=== PATIENT | female | born 1960 | race Caucasian/White ===

== ENCOUNTER 2019-08-02 02:31 | Emergency (ER) | payer BC, SELFPAY ==
--- NOTE | ~2019-08-02 | CT_ITS ---
EXAMINATION: CTA chest PE protocol DATE: 08/02/2019 04:07 INDICATION: Dyspnea TECHNIQUE: Computed tomography (CT) pulmonary angiogram of the chest was performed with 100 mL Omnipa que-350 intravenous contrast. Additional 3D reconstructions utilizing coronal maximum intensity proje ction (MIP) were performed. Automated exposure control and iterative reconstruction technique were em ployed. The dose-length product was 863.84 mGy-cm. COMPARISON: None FINDINGS: Excellent contrast opacification of the pulmonary arteries. There is mild streak artifact from dense contrast in the superior vena cava and right atrium. Mild scattered respiratory motion artifact which does not significantly limit evaluation. No pulmonary embolism. Mosaic attenuation throughout both l ungs likely related to poor inspiratory effort with scattered subsegmental air trapping related to sm all airway disease. No pneumonia, pulmonary edema, pleural effusion or pneumothorax. Borderline heart size. Thoracic aorta is normal in caliber with no dissection. No pathologically enlarged thoracic ly mphadenopathy. IMPRESSION: 1. No pulmonary embolism or other acute cardiopulmonary disease. 2. Borderline heart size. Reviewed, dictated and finalized at location A.
--- NOTE | ~2019-08-02 | XR_ITS ---
EXAMINATION: XR chest 2V DATE: 08/02/2019 03:02 INDICATION: Cough and shortness of breath TECHNIQUE: PA and lateral views of the chest were obtained. COMPARISON: Chest radiograph dated 03/18/2016 FINDINGS: The lungs remain clear with no focal airspace opacities, pulmonary edema, pleural effusion or pneumot horax. The cardiomediastinal silhouette is normal. There are bridging osteophytes at multiple levels in the spine, consistent with diffuse idiopathic skeletal hyperostosis (DISH). IMPRESSION: 1. No acute cardiopulmonary disease. Reviewed, dictated and finalized at location A.
[2019-08-02 02:37] VITALS: BP 160/80; PULSE 80; RESP 19; TEMP 36.7; O2SAT 99
--- NOTE | 2019-08-02 02:39 | ED.SOB ---
HPI - SOB/Dyspnea General Chief Complaint: Shortness of Breath/Dyspnea Stated Complaint: SOB Time Seen by Provider: 08/02/19 02:35 Source: patient Mode of arrival: ambulatory Limitations: no limitations History of Present Illness HPI Narrative: A 59 y/o female presents to the ED with c/o SOB. Pt states that 2 days ago she was disinfecting her counters when she believed she inhaled some of the chemicals. The SOB started immediately after she cleaned her counters and has been constant since. Pt denies rhinorrhea, sore throat, cough, and CP. She has no other complaints at this time. MD elicited complaint: shortness of breath Onset (ago): day(s) (2) Context: smoke/fume exposure Timing: constant Associated symptoms: denies other symptoms Related Data Allergies Allergy/AdvReac Type Severity Reaction Status Date / Time No Known Allergies Allergy Verified 08/02/19 02:34 Review of Systems Review of Systems: All systems reviewed & are unremarkable except as noted in HPI and below ENT: Denies nasal discharge and Denies sore throat Cardiovascular: Cardiovascular: Denies chest pain Respiratory: Respiratory: Denies cough and Reports dyspnea PMF Past Medical History Medical History (Updated 08/02/19 @ 04:57 by Deondre Viera DO) Arthritis HTN (hypertension) Hyperlipidemia Leg fracture Bilateral Post-menopausal Surgical History Surgical History (Updated 08/02/19 @ 02:41 by Tamica Foy) History of arthroscopic knee surgery Left History of section History of hip surgery Right with bilateral leg History of hysterectomy Social History Social History (Updated 08/02/19 @ 02:42 by Tamica Foy) Smoking status: Never smoker Gender identity (if verbalized by the patient): Female Exam Narrative: Exam Narrative: APPEARANCE: No acute distress, nontoxic, resting in bed EYES: EOMI HEENT: Normocephalic, atraumatic, nares patent, oral mucosa moist RESPIRATORY: No respiratory distress Clear to auscultation bilaterally with no rhonchi wheezing or rales. CARDIOVASCULAR: Regular rate and rhythm without murmurs rubs or gallops. ABDOMINAL: Soft, nontender, nondistended, no rebound or guarding MUSCULOSKELETAl: Moves all extremities. No clubbing, cyanosis or edema. NEURO: Awake and alert. Following commands, speech normal, no focal deficits SKIN:: Warm, dry. No rashes lesions or abrasions PSYCHIATRIC: Normal affect/mood, Course Course Emergency Course: Patient states she is feeling better this time Discussed with patient results of workup and diagnosis. Discussed need for follow-up with primary care, proper use of medication, and reasons to return to the emergency department. Patient understands and agrees to current treatment plan Vital Signs Vital signs: Vital Signs Temperature 98.0 F 08/02/19 02:37 Pulse Rate 80 08/02/19 02:37 Respiratory Rate 19 08/02/19 02:37 Blood Pressure 160/80 H 08/02/19 02:37 Pulse Oximetry 99 08/02/19 02:37 Temperature 98.0 F 08/02/19 02:37 Pulse Rate 77 08/02/19 03:13 Respiratory Rate 19 08/02/19 02:37 Blood Pressure 160/80 H 08/02/19 02:37 Pulse Oximetry 98 08/02/19 02:56 MDM - SOB/Dyspnea MDM Narrative Medical decision making narrative: Patient has dyspnea of unclear etiology. No wheezing on clinical exam. Low risk well score, PE is felt unlikely. No abnormalities noted on chest x-ray. Patient?s EKG is without high-risk changes. Oxygen saturations are normal. Patient is felt to be a reasonable candidate for additional evaluation as an outpatient. Lab Data Result diagrams: 08/02/19 03:13 08/02/19 03:13 Labs: Lab Results 08/02/19 08/02/19 08/02/19 Range/Units 03:13 03:13 03:13 WBC 6.2 (4.5-10.0) K/mm3 RBC 4.23 (4.2-5.4) M/mm3 Hgb 12.5 (12.0-15.0) g/dL Hct 39.4 (37.0-47.0) % MCV 93.1 (80-100) fl MCH 29.6 (26-34) pg MCHC 31.7 L (32-36) g/dl RDW 14.1 (11.5-14.5)
--- NOTE | 2019-08-02 02:45 | ECG_ITS ---
Measurements Intervals [place] Rate: 82 P: 38 [place]: 123 QRS: 3 QRSD: 109 T: 15 QT: 362 QTc: 423 Interpretive Statements SINUS RHYTHM DELAYED PRECORDIAL R/S TRANSITION BORDERLINE ST-T WAVE ABNORMALITY- ANTEROLAT/INF LEADS BASELINE ARTIFACT- I, III, AVL, V6 BORDERLINE ECG Electronically Signed On 08-02-2019 7:07:48 CDT by Jayant Glover D.O.
[2019-08-02 02:56] VITALS: O2SAT 98
[2019-08-02 03:13] VITALS: PULSE 77
[2019-08-02 03:19] LABS: Basophils Percent Auto 0.3 % (0.2-1.2); Eosinophils Absolute Auto 0.2 K/mm3 (0-0.3); Eosinophils Percent Auto 2.6 % (0-4.4); Hematocrit 39.4 % (37.0-47.0); Hemoglobin 12.5 g/dL (12.0-15.0); Immature Granulocyte Absolute 0.01 K/mm3 (0.00-0.031); Immature Granulocyte Percent A 0.2 % (0-0.5); Lymphocytes Absolute Auto 2.04 K/mm3 (0.9-3.2); Mean Corpuscular HGB Conc 31.7 g/dl (32-36); Mean Corpuscular Hemoglobin 29.6 pg (26-34); Mean Corpuscular Volume 93.1 fl (80-100); Mean Platelet Volume 9.8 fl (7.4-10.4); Monocytes Absolute Auto 0.4 K/mm3 (0.1-0.6); Monocytes Percent Auto 6.8 % (2.6-8.5); Neutrophils Absolute Auto 3.5 K/mm3 (1.3-6.7); Neutrophils Percent Auto 57.1 % (45.5-73.1); Platelet Count Result 305 k/mm3 (150-375); Red Blood Count 4.23 M/mm3 (4.2-5.4); Red Cell Distribution Width 14.1 % (11.5-14.5); White Blood Count 6.2 K/mm3 (4.5-10.0)
[2019-08-02 03:28] LABS: INR 0.9; Sodium 138 mmol/L (137-145)
[2019-08-02 03:29] LABS: Partial Thromboplastin Time 31.9 SECONDS (22.3-36.8)
[2019-08-02 03:36] LABS: Blood Urea Nitrogen 16 mg/dL (7-17); Calcium 9.3 mg/dL (8.4-10.2); Carbon Dioxide 29 mmol/L (22-30); Chloride 103 mmol/L (98-107); Estimated Glomerular Filt Rate > 60; Glucose 116 mg/dL (65-105); Potassium 3.8 mmol/L (3.4-5.0)
[2019-08-02 03:43] LABS: NT Pro B Type Natriuretic Pept 65 PG/ML (5-100); Troponin I < 0.012 ng/mL (0.000-0.034)
[2019-08-02 03:50] VITALS: BP 165/83; PULSE 73; RESP 17; O2SAT 98
[2019-08-02 05:13] VITALS: BP 159/91; PULSE 72; RESP 16; TEMP 36.9; O2SAT 100
== END 2019-08-02 05:15 | disposition home or self-care (01) ==
PROVIDERS: Emergency Provider Emergency Medicine
DX: R06.00 Dyspnea, unspecified (principal); M19.90 Unspecified osteoarthritis, unspecified site; I10 Essential (primary) hypertension; E78.5 Hyperlipidemia, unspecified; R94.31 Abnormal electrocardiogram [ECG] [EKG]
CPT/HCPCS: 36415; 71046; 71275; 80048; 83880; 84484; 85025; 85610; 85730; 93005; 99284; Q9967

== ENCOUNTER 2019-08-20 04:30 | Emergency (ER) | payer MEDICAID, SELFPAY ==
--- NOTE | ~2019-08-20 | CT_ITS ---
EXAMINATION: CT abdomen pelvis w con DATE: 08/20/2019 05:51 INDICATION: Generalized abdominal pain. TECHNIQUE: Computed tomography (CT) of the abdomen and pelvis was performed with 100 mL Omnipaque 350 intravenous contrast. Automated exposure control and iterative reconstruction technique were employe d. The dose-length product was 1593.47 mGy-cm. COMPARISON: CT abdomen and pelvis 02/16/2010 FINDINGS: The visualized portions of the lung bases demonstrate mild atelectasis. No pleural effusion . Cardiomegaly is noted. No pericardial effusion. There is a chronic 11 mm hyperenhancing mass in rig ht hepatic lobe, likely a hemangioma or focal nodular hyperplasia. Again seen is a 2.2 cm mass in lef t hepatic lobe, likely benign. There is a gallstone in the gallbladder, which is normal in size. The spleen, pancreas, and right adrenal gland are normal. There is a 9 mm mass in left adrenal gland with out change, consistent with an adenoma. There is cortical thinning of the kidneys. There are no dilat ed loops of bowel. The appendix is normal. There are no pathologically enlarged lymph nodes. There is no free intraperitoneal fluid. There is screw fixation of right acetabulum. There is severe right hi p osteoarthritis and moderate left hip osteoarthritis. There are bridging endplate osteophytes at mul tiple levels in the thoracic spine, consistent with diffuse idiopathic skeletal hyperostosis (DISH). There is mild lumbar spondylosis. IMPRESSION: 1. Cholelithiasis. No evidence of acute cholecystitis. Reviewed, dictated and finalized at location A.
[2019-08-20 04:34] VITALS: BP 150/95; PULSE 87; RESP 20; TEMP 36.3; O2SAT 100
--- NOTE | 2019-08-20 04:41 | ED.GENADULT ---
HPI - General Adult General Chief complaint: Abdominal Pain Stated complaint: ABD PAIN Time Seen by Provider: 08/20/19 04:38 Source: RN notes reviewed History of Present Illness HPI narrative: Patient presents emergency department from home for abdominal pain. Patient states symptoms began this evening. The pain is located diffusely across her mid abdomen. Patient describes the pain is burning. States she took no previous pain medication for the symptoms. States that the makes the pain better or worse. Denies any fevers or chills nausea vomiting diarrhea dysuria or any other symptoms Related Data Home Medications Medication Instructions Recorded Confirmed [id number] [id number] cap PO 08/02/19 [Daily Multivitamin] Allergies Allergy/AdvReac Type Severity Reaction Status Date / Time No Known Allergies Allergy Verified 08/20/19 04:41 Review of Systems Review of Systems: Narrative: Gen.: Denies fevers or chills ENT: Denies congestion Respiratory: Denies shortness of breath or cough CV: Denies chest pain or palpitations GI: See HPI denies burning, urgency, frequency or hematuria Musculoskeletal: Denies back pain or muscle pain Neuro: Denies numbness, tingling, weakness or focal weakness Skin: Denies rash Except as documented, all other systems reviewed and negative PMF Past Medical History Medical History Arthritis HTN (hypertension) Hyperlipidemia Leg fracture Bilateral Post-menopausal Surgical History Surgical History (Updated 08/02/19 @ 02:41 by Tamica Foy) History of arthroscopic knee surgery Left History of section History of hip surgery Right with bilateral leg History of hysterectomy Social History Social History Smoking status: Never smoker Gender identity (if verbalized by the patient): Female Exam Narrative: Exam Narrative: APPEARANCE: No acute distress, nontoxic, resting in bed HEENT: Normocephalic, atraumatic, OMM RESPIRATORY: No respiratory distress, clear to auscultation bilaterally with no rhonchi wheezing or rales CARDIOVASCULAR: RRR s murmur ABDOMINAL: Obese, soft, nondistended, tender to palpation right lower quadrant, right upper quadrant left upper quadrant no tenderness left lower quadrant, no rebound or guarding MUSCULOSKELETAl: Moves all extremities. No clubbing, cyanosis or edema. NEURO: Awake and alert. Following commands, speech normal, no focal deficits SKIN:: Warm, dry. Normal Color PSYCHIATRIC: Normal affect/mood Course Course Emergency Course: Patient notes mild change in pain with Tylenol and improvement with GI cocktail Patient states that they are feeling much better at this time. States abdominal pain has improved. Repeat abdominal exam shows the patient's abdomen to be soft with no surgical abdomen present discussed with patient results of workup and diagnosis. Discussed need for follow-up with primary care physician, reasons to return to the emergency department in proper use of medication. Patient understands and agrees to current treatment plan Vital Signs Vital signs: Vital Signs Temperature 97.3 F L 08/20/19 04:34 Pulse Rate 87 08/20/19 04:34 Respiratory Rate 20 08/20/19 04:34 Blood Pressure 150/95 H 08/20/19 04:34 Pulse Oximetry 100 08/20/19 04:34 Temperature 97.3 F L 08/20/19 04:34 Pulse Rate 87 08/20/19 04:34 Respiratory Rate 20 08/20/19 04:34 Blood Pressure 150/95 H 08/20/19 04:34 Pulse Oximetry 100 08/20/19 04:34 Medical Decision Making MDM Narrative Medical decision making narrative: Patient's abdomen is soft without significant pain or signs of surgical abdomen on serial exams. Lab and x-ray evaluations are reviewed and patient is felt to be a reasonable candidate for outpatient management. Patient was instructed as to limitations of x-ray and laboratory evaluation an
[2019-08-20] MEDS: SODIUM CHLORIDE 0.9% IV 1,000 ML 999 ML IV CONT (04:44)
[2019-08-20 05:02] LABS: Basophils Absolute Auto 0.1 K/mm3 (0.0-0.1); Basophils Percent Auto 0.6 % (0.2-1.2); Eosinophils Absolute Auto 0.2 K/mm3 (0-0.3); Eosinophils Percent Auto 2.2 % (0-4.4); Hematocrit 41.2 % (37.0-47.0); Immature Granulocyte Absolute 0.02 K/mm3 (0.00-0.031); Immature Granulocyte Percent A 0.2 % (0-0.5); Lymphocytes Absolute Auto 2.36 K/mm3 (0.9-3.2); Lymphocytes Percent Auto 29.4 % (18.3-44.2); Mean Corpuscular HGB Conc 31.6 g/dl (32-36); Mean Corpuscular Hemoglobin 29.3 pg (26-34); Mean Platelet Volume 10.1 fl (7.4-10.4); Monocytes Absolute Auto 0.5 K/mm3 (0.1-0.6); Monocytes Percent Auto 6.1 % (2.6-8.5); Neutrophils Absolute Auto 4.9 K/mm3 (1.3-6.7); Neutrophils Percent Auto 61.5 % (45.5-73.1); Platelet Count Result 368 k/mm3 (150-375); Red Blood Count 4.43 M/mm3 (4.2-5.4); Red Cell Distribution Width 14.1 % (11.5-14.5)
[2019-08-20 05:04] LABS: Add Urine Microscopic? NO; Appearance Urine Clear (Clear); Bilirubin Urine Negative (Negative); Blood Urine Negative (Negative); Color Urine Straw (Yellow); Glucose Urine UA Negative (Negative); Ketones Urine Negative (Negative); Leukocyte Esterase Ur Negative LEU/UL (Negative); Nitrate Urine Negative (Negative); Protein Urine Negative (Negative); Specific Grav Ur 1.011 (1.001-1.035); Urobilinogen Urine Negative mg/dL (<2.0)
[2019-08-20 05:26] LABS: Alanine Aminotransferase 13 U/L (4-35); Albumin Level 4.4 g/dL (3.5-5.1); Alkaline Phosphatase 93 U/L (38-126); Aspartate Amino Transferase 22 U/L (14-36); Bilirubin,Total 0.8 mg/dL (0.2-1.3); Blood Urea Nitrogen 15 mg/dL (7-17); Calcium 9.5 mg/dL (8.4-10.2); Carbon Dioxide 29 mmol/L (22-30); Chloride 104 mmol/L (98-107); Estimated Glomerular Filt Rate > 60; Glucose 113 mg/dL (65-105); Lipase 114 U/L (23-300); Potassium 3.8 mmol/L (3.4-5.0); Sodium 140 mmol/L (137-145)
== END 2019-08-20 06:29 | disposition home or self-care (01) ==
PROVIDERS: Emergency Provider Emergency Medicine
DX: K80.20 Calculus of gallbladder without cholecystitis without obstruction (principal); M19.90 Unspecified osteoarthritis, unspecified site; I10 Essential (primary) hypertension; E78.5 Hyperlipidemia, unspecified
CPT/HCPCS: 36415; 74177; 80053; 81003; 83690; 85025; 96361; 96374; 99284; A9270; J0131; J7030; Q9967

== ENCOUNTER 2019-09-01 10:59 | Observation (INO) | payer MEDICAID, SELFPAY ==
[2019-09-01] VITALS (10 sets, daily range): BP systolic 134–156; BP diastolic 63–80; PULSE 64–71; RESP 14–18; TEMP 36.1–36.8; O2SAT 97–100
--- NOTE | ~2019-09-01 | XR_ITS ---
EXAMINATION: XR chest 1V portable INDICATION: Chest pain TECHNIQUE: Portable AP chest at 1127 hours COMPARISON: 08/02/2019 FINDINGS: The lungs are free of acute opacities. There is no pleural effusion or pneumothorax. The ca rdiomediastinal silhouette is normal. IMPRESSION: 1. No acute cardiopulmonary abnormality. Reviewed, dictated and finalized at location A.
[2019-09-01 11:35] LABS: Basophils Percent Auto 0.6 % (0.2-1.2); Eosinophils Absolute Auto 0.1 K/mm3 (0-0.3); Eosinophils Percent Auto 1.9 % (0-4.4); Hematocrit 41.6 % (37.0-47.0); Hemoglobin 13.1 g/dL (12.0-15.0); Immature Granulocyte Absolute 0.01 K/mm3 (0.00-0.031); Immature Granulocyte Percent A 0.1 % (0-0.5); Lymphocytes Absolute Auto 2.27 K/mm3 (0.9-3.2); Lymphocytes Percent Auto 33.1 % (18.3-44.2); Mean Corpuscular HGB Conc 31.5 g/dl (32-36); Mean Corpuscular Volume 92.2 fl (80-100); Mean Platelet Volume 10.4 fl (7.4-10.4); Monocytes Absolute Auto 0.4 K/mm3 (0.1-0.6); Monocytes Percent Auto 6.3 % (2.6-8.5); Platelet Count Result 350 k/mm3 (150-375); Red Blood Count 4.51 M/mm3 (4.2-5.4); Red Cell Distribution Width 13.8 % (11.5-14.5); White Blood Count 6.9 K/mm3 (4.5-10.0)
--- NOTE | 2019-09-01 11:39 | ED.ABDPAIN ---
HPI - Abdominal Pain General Chief Complaint: Chest Pain Stated Complaint: CHEST PAIN Time Seen by Provider: 09/01/19 11:01 Source: RN notes reviewed History of Present Illness HPI narrative: Patient presents emergency department from home for chest pain. Patient states 3 months prior to arrival she had left-sided chest pain that radiated to left arm. Pain was described as sharp and stabbing was associated with epigastric abdominal pain and pain in the bilateral upper abdomen. Patient denies any fevers or chills denies any shortness of breath nausea vomiting or diarrhea. Patient states she was recently diagnosed with gallstones and did see a surgeon and it is been request that she receive one further test for her gallbladder. Patient dates the pain is improved but still mildly has left-sided chest pain at this time Related Data Home Medications Medication Instructions Recorded Confirmed [id number] I-soqux-bbh-coQ10 cap PO 08/02/19 08/27/19 [Daily Multivitamin] escitalopram oxalate 10 mg tablet 10 mg PO DAILY 08/23/19 08/27/19 Allergies Allergy/AdvReac Type Severity Reaction Status Date / Time No Known Allergies Allergy Verified 09/01/19 11:09 Review of Systems Review of Systems: Narrative: Gen.: Denies fevers or chills Eyes: Denies eye pain or visual change ENT: Denies congestion Respiratory: Denies shortness of breath or cough CV: Reports chest pain GI: Reports abdominal pain denies nausea, emesis or diarrhea Musculoskeletal: Denies back pain or muscle pain Neuro: Denies numbness, tingling, weakness or focal weakness Skin: Denies rash Except as documented, all other systems reviewed and negative [facility] Past Medical History Medical History Arthritis HTN (hypertension) Hyperlipidemia Leg fracture Bilateral Post-menopausal Social History Social History Smoking status: Never smoker Alcohol intake: never Gender identity (if verbalized by the patient): Female Exam Narrative: Exam Narrative: APPEARANCE: No acute distress, nontoxic, resting in bed HEENT: Normocephalic, atraumatic, OMM RESPIRATORY: No respiratory distress, clear to auscultation bilaterally with no rhonchi wheezing or rales CARDIOVASCULAR: RRR s murmur Chest: Tender palpation over left anterior chest wall ABDOMINAL: Soft, nondistended, tender palpation epigastric and right upper quadrant left upper quadrant, no tenderness right lower quadrant left lower quadrant MUSCULOSKELETAl: Moves all extremities. No clubbing, cyanosis or edema. NEURO: Awake and alert. Following commands, speech normal, no focal deficits SKIN:: Warm, dry. Normal Color PSYCHIATRIC: Normal affect/mood Course Course Emergency Course: Reviewed old records. Patient has been seen here twice in the past month for similar Discussed with JEANINE Gamez presentation work-up. Agrees with admission at this time Discussed with patient and family results of workup and diagnosis. Discussed need for admission. Patient and family understand and agree to current treatment plan Vital Signs Vital signs: Vital Signs Temperature 98.2 F 09/01/19 11:03 Pulse Rate 71 09/01/19 11:03 Respiratory Rate 18 09/01/19 11:03 Blood Pressure 156/76 H 09/01/19 11:03 Pulse Oximetry 100 09/01/19 11:03 Temperature 98.2 F 09/01/19 11:03 Pulse Rate 64 09/01/19 13:56 Respiratory Rate 16 09/01/19 13:56 Blood Pressure 135/63 09/01/19 13:56 Pulse Oximetry 99 09/01/19 13:56 MDM - Abdominal Pain Lab Data Result diagrams: 09/01/19 11:26 09/01/19 11:26 Labs: Lab Results 09/01/19 09/01/19 09/01/19 Range/Units 11:26 11:26 11:26 WBC 6.9 (4.5-10.0) K/mm3 RBC 4.51 (4.2-5.4) M/mm3 Hgb 13.1 (12.0-15.0) g/dL Hct 41.6 (37.0-47.0) % MCV 92.2 (80-100) fl MCH 29.0 (26-34) pg MCHC 31.5 L (32-36)
[2019-09-01 11:45] LABS: INR 0.9; Prothrombin Time 12.2 Seconds (11.1-14.7)
[2019-09-01 11:46] LABS: Partial Thromboplastin Time 32.1 SECONDS (22.3-36.8)
[2019-09-01 11:51] LABS: Alanine Aminotransferase 12 U/L (4-35); Albumin Level 4.4 g/dL (3.5-5.1); Alkaline Phosphatase 88 U/L (38-126); Aspartate Amino Transferase 22 U/L (14-36); Bilirubin,Total 0.8 mg/dL (0.2-1.3); Blood Urea Nitrogen 17 mg/dL (7-17); Calcium 9.6 mg/dL (8.4-10.2); Carbon Dioxide 30 mmol/L (22-30); Chloride 103 mmol/L (98-107); Estimated CRCL calculation 106 ml/min; Estimated Glomerular Filt Rate > 60; Glucose 104 mg/dL (65-105); Lipase 97 U/L (23-300); Potassium 3.5 mmol/L (3.4-5.0); Sodium 140 mmol/L (137-145)
[2019-09-01 12:03] LABS: Troponin I < 0.012 ng/mL (0.000-0.034)
--- NOTE | 2019-09-01 12:58 | ECG_ITS ---
Measurements Intervals [place] Rate: 73 P: 48 [place]: 131 QRS: -1 QRSD: 121 T: 3 QT: 390 QTc: 431 Interpretive Statements SINUS RHYTHM INTRAVENTRICULAR CONDUCTION DELAY DELAYED PRECORDIAL R/S TRANSITION BORDERLINE ST-T WAVE ABNORMALITY- ANTEROLAT/INF LEADS BASELINE ARTIFACT- I, II, AVL, AVF BORDERLINE ECG Electronically Signed On 09-01-2019 15:13:41 CDT by Jayant Glover D.O.
[2019-09-01] MEDS: ASPIRIN 81 MG CHEWABLE TABLET 324 MG PO (13:45)
--- NOTE | 2019-09-01 14:05 | ADMGEN ---
This patient, Mame Valero, was admitted to IMU Room 202-. Patient/family oriented to hospital policies and general routines including ID bracelet, bed and alarms, visiting hours, pain management, procedures, bathroom and other care routines, personal items, smoking policy, room service/diet, and visiting hours. Valuables list has been completed. Information on how to activate the Rapid Response Team has been discussed. Patient/Family are encouraged to report perceived risks to care and to ask questions if they do not understand what they are told or what they should do.
[2019-09-01 15:38] LABS: Troponin I < 0.012 ng/mL (0.000-0.034)
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
[2019-09-01 19:38] LABS: Troponin I < 0.012 ng/mL (0.000-0.034)
--- NOTE | 2019-09-26 11:40 | P.PNCA_ITS ---
Progress Note: A&P Additional Plan 59-year-old patient with abdominal and chest pain. As detailed in the chart patient discharged by the primary service before the consult was placed. Note is being placed in the chart per medical record request Mac Abrams MD [facility] Subjective Date/time seen: 09/26/19 11:40 Interval history: Consult requested to see this patient with chest and abdominal pain. Patient discharged by the primary service before opportunity to see the patient Objective Data Meds/Results Radiology Results: ITS Impressions Chest X-Ray 09/01/19 11:35 IMPRESSION: 1. No acute cardiopulmonary abnormality.
== END 2019-09-01 20:34 | disposition home or self-care (01) ==
LOC: ANHED 13:47 → ANHIMU 14:11
PROVIDERS: Admitting Provider Internal Medicine; Emergency Provider Emergency Medicine; PCP Nurse Practitioner Family; Visit Provider Hospitalist
DX: R07.9 Chest pain, unspecified (principal); R10.11 Right upper quadrant pain; K80.20 Calculus of gallbladder without cholecystitis without obstruction; K21.9 Gastro-esophageal reflux disease without esophagitis; E78.5 Hyperlipidemia, unspecified; Z78.0 Asymptomatic menopausal state
CPT/HCPCS: 36415; 71045; 80053; 83690; 84484; 85025; 85610; 85730; 93005; 99285; A9270; G0378; G0379

== ENCOUNTER 2020-01-28 16:58 | Emergency (ER) | payer OTHER, SELFPAY ==
[2020-01-28 17:14] VITALS: BP 134/83; PULSE 79; RESP 16; TEMP 36.7; O2SAT 98
--- NOTE | 2020-01-28 17:49 | PC.NURSE ---
aware of scudding inspector in with possible emergent pt. aware of facility status. no rash noted at this time.
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
== END 2020-01-28 18:35 | disposition home or self-care (01) ==
PROVIDERS: Emergency Provider Nurse Practitioner Family; PCP Nurse Practitioner Family
DX: L25.9 Unspecified contact dermatitis, unspecified cause (principal); I10 Essential (primary) hypertension; K21.9 Gastro-esophageal reflux disease without esophagitis
CPT/HCPCS: 99211; G0463

== ENCOUNTER 2020-08-29 09:47 | Outpatient (CLI) | payer OTHER, SELFPAY ==
--- NOTE | ~2020-08-29 | XR_ITS ---
XR hip BI wo pelvis DATE: 08/29/2020 10:16 INDICATION: Bilateral hip pain. History of prior benign pelvic surgery. TECHNIQUE: AP and lateral views of each hip COMPARISON: 08/20/2019 CT abdomen pelvis 05/30/2018 right hip FINDINGS: Diffuse osteopenia. The pubic symphysis and sacroiliac joints are intact. There is bilateral hip osteoarthritic arthritis including joint space narrowing and degenerative spur ring, particularly severe on the right. Multiple right hip pins bodies. No fracture or dislocation, avascular necrosis or bone destruction. There are 2 screws through the posterior superior aspect of the right acetabulum. IMPRESSION: Bilateral hip osteoarthritis, more severe on the right Right hip loose bodies Reviewed, dictated and finalized at location A.
--- NOTE | ~2020-08-29 | XR_ITS ---
XR lumbar spine 2-3V DATE: 08/29/2020 10:16 INDICATION: Low back pain TECHNIQUE: AP, lateral, coned lateral lumbosacral views COMPARISON: lumbar spine 02/15/2017 MRI of lumbar spine FINDINGS: Diffuse osteopenia. No fracture or bone destruction of the lumbar spine. The lumbar pedicles are intact. Moderately severe degenerative disease at L1-2 and L2-3 and mild degenerative disc disease at L3-4, L 4-5 and L5-S1. There is degenerative change at the apophyseal joints with associated grade 1 anterolisthesis at L4-5 , stable since 08/30/2016. The sacroiliac joints are normal. IMPRESSION: Diffuse osteopenia Multilevel degenerative disc disease, most pronounced at L1-2 and L2-3 Degenerative changes of apophyseal joints with associated grade 1 anterolisthesis at L4-5 Reviewed, dictated and finalized at location A. IMPRESSION: Diffuse osteopenia Multilevel degenerative disc disease, most pronounced at L1-2 and L2-3 Degenerative changes of apophyseal joints with associated grade 1 anterolisthes is at L4-5
== END 2020-08-29 09:48 | disposition home or self-care (01) ==
LOC: ANHIMG 09:53
PROVIDERS: PCP Nurse Practitioner Family; Visit Provider Nurse Practitioner Family
DX: M16.0 Bilateral primary osteoarthritis of hip (principal); M24.051 Loose body in right hip; M85.88 Other specified disorders of bone density and structure, other site; M51.36 Other intervertebral disc degeneration, lumbar region
CPT/HCPCS: 72100; 73521

== ENCOUNTER 2020-12-07 17:29 | Emergency (ER) | payer OTHER, SELFPAY ==
--- NOTE | ~2020-12-07 | XR_ITS ---
EXAMINATION:XR_CERV2-3V_CR DATE: 12/07/2020 19:44 INDICATION: Neck pain TECHNIQUE: AP, lateral, and odontoid views of the cervical spine are provided. COMPARISON: 08/30/2016 FINDINGS: Alignment is normal. The odontoid is intact. No fracture is identified. There is unchanged mild loss of intervertebral disc space height at C5-6. Small degenerative osteophytes project from th e anterior endplates of multiple vertebral bodies. There is moderate multilevel facet and uncovertebr al joint osteoarthritis. The vertebral body heights are maintained. Prevertebral soft tissues are nor mal. IMPRESSION: 1. Mild to moderate cervical spondylosis without acute findings or significant interval change. Reviewed, dictated and finalized at location A.
[2020-12-07 18:24] VITALS: BP 151/76; PULSE 80; RESP 16; TEMP 36.4; O2SAT 100
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
[2020-12-07] MEDS: ACETAMINOPHEN 325 MG TABLET 650 MG PO (20:38)
[2020-12-07 20:53] VITALS: BP 158/71; PULSE 72; RESP 20; TEMP 36.3; O2SAT 99
[2020-12-07 20:56] VITALS: BP 158/71; PULSE 66; RESP 20; TEMP 36.3; O2SAT 99
== END 2020-12-07 20:59 | disposition home or self-care (01) ==
PROVIDERS: Emergency Provider Emergency Medicine; PCP Nurse Practitioner Family
DX: S16.1XXA Strain of muscle, fascia and tendon at neck level, initial encounter (principal); M62.838 Other muscle spasm; K21.9 Gastro-esophageal reflux disease without esophagitis; M19.90 Unspecified osteoarthritis, unspecified site; E78.5 Hyperlipidemia, unspecified; M47.812 Spondylosis without myelopathy or radiculopathy, cervical region; X58.XXXA Exposure to other specified factors, initial encounter
CPT/HCPCS: 72040; 99283; A9270

== ENCOUNTER 2021-01-30 09:43 | Outpatient (CLI) | payer OTHER, SELFPAY ==
--- NOTE | ~2021-01-30 | DEXA_ITS ---
Bone Density Report Name: Mame Valero Age: 61 Sex: Female Ethnicity: White Date of : 1960 Indication: postmenopausal; height loss; hysterectomy; Referring Provider: Drew, Dona Frazier Study: Bone densitometry was performed. Exam Date: January 30, 2021 Accession number: [id number] Bone Density: Region BMD T-score Z-score Classification AP Spine (L2, L3, L4) 1.096 0.2 1.8 Normal Femoral Neck (Left) 0.712 -1.2 0.2 Osteopenia Total Hip (Left) 0.828 -0.9 0.2 Normal World Health Organization criteria for BMD impression classify patients as: Normal (T-score at or above -1.0), Osteopenia (T-score between -1.0 and -2.5), or Osteoporosis (T-score at or below -2.5). 10-year Fracture Risk(1): Major Osteoporotic Fracture 6.7% Hip Fracture 0.5% Reported Risk Factors: [place] (), Neck BMD=0.712, BMI=45.7 (1) FRAX(R) Version 3.08. Fracture probability calculated for an untreated patient. Fracture probability may be lower if the patient has received treatment. Clinical Information Provided by Patient: Has used the following medications: Vitamin D, Calcium Has the following medical conditions: Hysterectomy Patient maximum height was 64 Menopause Age: 37 Does not regularly consume dairy products Onset of menses at age 9 Number of children 3 Impression: The patient has low bone mass, based on the Left Femoral Neck T-score. The patient has an estimated ten-year risk of hip fracture of 0.5% and an estimated ten-year risk of major fracture of 6.7%, based on the WHO FRAX algorithm. Discussion: BONE DENSITY IS LOW AT ONE OR MORE SKELETAL SITES. This patient's lowest T-score is low at one or more skeletal sites. It meets the World Health Organization's (WHO) criteria for ?low bone mass? (T-score between -1.0 and -2.5). The patient's 10-year risk of fracture as calculated by FRAX is less than the threshold where pharmacological therapy is recommended by the National Osteoporosis Foundation (NOF). However, all treatment decisions require clinical judgment and consideration of individual patient factors, including patient preferences, comorbidities, previous drug use, risk factors not captured in the FRAX model (e.g., frailty, falls, vitamin D deficiency, increased bone turnover, interval significant decline in bone density) and possible under or overestimation of fracture risk by FRAX. The patient should follow a healthful lifestyle (good nutrition with adequate calcium and vitamin D, and appropriate weight-bearing exercise). Follow-Up: Consider repeating this study in 2 to 3 years to reassess this patient's status, or sooner if there is some new clinical indication. Reported by: LUIS on 01/30/2021 10:12:00 AM. Reviewed, dictated and finalized at location AAsad MANZANARES
== END 2021-01-30 09:44 | disposition home or self-care (01) ==
LOC: ANHIMG 09:47
PROVIDERS: PCP Nurse Practitioner Family; Visit Provider Nurse Practitioner Family
DX: Z13.820 Encounter for screening for osteoporosis (principal); M85.852 Other specified disorders of bone density and structure, left thigh
CPT/HCPCS: 77080

== ENCOUNTER 2021-05-25 20:08 | Emergency (ER) | payer OTHER, SELFPAY ==
--- NOTE | ~2021-05-25 | XR_ITS ---
EXAMINATION: XR chest 2V DATE: 05/25/2021 20:36 INDICATION: Left and center chest tightness. TECHNIQUE: Frontal and lateral views of the chest were obtained. COMPARISON: Chest single view 09/01/2019 FINDINGS: The chest demonstrates clear lungs without pneumonia, pleural effusion, or pneumothorax. Th e heart size is normal. IMPRESSION: 1. No acute cardiopulmonary disease. Reviewed, dictated and finalized at location A. THCARE INTERPRETER
--- NOTE | 2021-05-25 20:08 | ECG_ITS ---
Measurements Intervals [place] Rate: 65 P: 7 MD: 114 QRS: -8 QRSD: 118 T: 29 QT: 397 QTc: 413 Interpretive Statements SINUS RHYTHM NORMAL ECG Electronically Signed On 05-26-2021 6:19:18 BOOMBOAT OPERATOR by Jayant Glover D.O.
--- NOTE | 2021-05-25 20:32 | PC.NURSE ---
Pt to XY at this time.
[2021-05-25 20:47] VITALS: BP 145/78; PULSE 64; RESP 18; TEMP 36.2; O2SAT 99
[2021-05-25 21:09] LABS: Basophils Percent Auto 0.3 % (0.2-1.2); Eosinophils Absolute Auto 0.2 K/mm3 (0-0.3); Eosinophils Percent Auto 2.2 % (0-4.4); Hematocrit 42.1 % (37.0-47.0); Hemoglobin 13.2 g/dL (12.0-15.0); Immature Granulocyte Absolute 0.02 K/mm3 (0.00-0.031); Immature Granulocyte Percent A 0.3 % (0-0.5); Lymphocytes Absolute Auto 2.31 K/mm3 (0.9-3.2); Lymphocytes Percent Auto 32.3 % (18.3-44.2); Mean Corpuscular HGB Conc 31.4 g/dl (32-36); Mean Corpuscular Hemoglobin 29.3 pg (26-34); Mean Corpuscular Volume 93.3 fl (80-100); Mean Platelet Volume 9.2 fl (7.4-10.4); Monocytes Absolute Auto 0.4 K/mm3 (0.1-0.6); Monocytes Percent Auto 5.7 % (2.6-8.5); Neutrophils Absolute Auto 4.2 K/mm3 (1.3-6.7); Neutrophils Percent Auto 59.2 % (45.5-73.1); Platelet Count Result 307 k/mm3 (150-375); Red Blood Count 4.51 M/mm3 (4.2-5.4); White Blood Count 7.2 K/mm3 (4.5-10.0)
[2021-05-25 21:19] LABS: INR 0.9
[2021-05-25 21:20] LABS: Alanine Aminotransferase 17 U/L (4-35); Albumin Level 4.4 g/dL (3.5-5.1); Alkaline Phosphatase 73 U/L (38-126); Anion Gap 7 mmol/L (8-16); Aspartate Amino Transferase 28 U/L (14-36); Bilirubin,Total 0.6 mg/dL (0.2-1.3); Blood Urea Nitrogen 16 mg/dL (7-17); Calcium 9.7 mg/dL (8.4-10.2); Carbon Dioxide 30 mmol/L (22-30); Chloride 104 mmol/L (98-107); Estimated CRCL calculation 90 ml/min; Estimated Glomerular Filt Rate > 60; Glucose 105 mg/dL (65-110); Lipase 150 U/L (23-300); Sodium 141 mmol/L (137-145)
[2021-05-25 21:30] LABS: Troponin I < 0.012 ng/mL (0.000-0.034)
[2021-05-25 22:13] VITALS: BP 142/92; PULSE 77; RESP 18; O2SAT 99
[2021-05-26 00:05] VITALS: BP 147/57; PULSE 67; RESP 16; O2SAT 100
[2021-05-26 00:44] LABS: Troponin I < 0.012 ng/mL (0.000-0.034)
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
--- NOTE | 2021-05-26 00:54 | PC.NURSE ---
rn double checked with erp dr carrillo. no baby aspirin to be given at this time.
[2021-05-26 01:24] VITALS: BP 111/54; PULSE 64; RESP 16; O2SAT 99
== END 2021-05-26 01:26 | disposition home or self-care (01) ==
PROVIDERS: Family Medicine; Emergency Provider Emergency Medicine; PCP Nurse Practitioner Family
DX: R07.89 Other chest pain (principal); K21.9 Gastro-esophageal reflux disease without esophagitis; E78.5 Hyperlipidemia, unspecified; M19.90 Unspecified osteoarthritis, unspecified site
CPT/HCPCS: 36415; 71046; 80053; 83690; 84484; 85025; 85610; 85730; 93005; 99284

== ENCOUNTER 2022-01-12 08:17 | Outpatient (CLI) | payer OTHER, SELFPAY ==
--- NOTE | ~2022-01-12 | XR_ITS ---
EXAMINATION: XR chest 2V DATE: 01/12/2022 08:44 INDICATION: Cough TECHNIQUE: PA and lateral views of the chest are obtained. COMPARISON: 05/25/2021 FINDINGS: The lungs are free of acute opacities. No pleural effusion or pneumothorax. The cardiomedia stinal silhouette is normal. There is moderate thoracic spondylosis. IMPRESSION: 1. No acute cardiopulmonary abnormality. Reviewed, dictated and finalized at location B.
== END 2022-01-12 08:18 | disposition home or self-care (01) ==
PROVIDERS: PCP Nurse Practitioner Family; Visit Provider Nurse Practitioner Family
DX: R05.9 Cough, unspecified (principal)
CPT/HCPCS: 71046

== ENCOUNTER 2022-03-02 07:53 | Emergency (ER) | payer OTHER, SELFPAY ==
[2022-03-02] VITALS (8 sets, daily range): BP systolic 133–147; BP diastolic 77–84; PULSE 71–80; RESP 12–20; TEMP 36.5; O2SAT 97–100
--- NOTE | ~2022-03-02 | XR_ITS ---
EXAMINATION: XR chest 2V 03/02/2022 08:25 INDICATION: Chest pain and shortness of breath PROCEDURE: 2 view chest COMPARISON: Comparison to multiple prior studies sequentially, with oldest reviewed study dated 08/01. FINDINGS: The lungs are clear. The cardiomediastinal silhouette is within normal limits. There are no pleural effusions. There is no pneumothorax suspected. IMPRESSION: 1: NO ACUTE CARDIOPULMONARY DISEASE. Reviewed, dictated and finalized at location B.
--- NOTE | 2022-03-02 08:00 | ECG_ITS ---
Measurements Intervals [place] Rate: 76 P: 29 RI: 141 QRS: -7 QRSD: 114 T: 5 QT: 378 QTc: 426 Interpretive Statements SINUS RHYTHM POOR R-WAVE PROGRESSION COMPARED TO ECG 05/25/2021 20:30:16 NO SIGNIFICANT CHANGES Electronically Signed On 03-02-2022 16:14:04 CDT by Rob Hernandez M.D.
[2022-03-02 08:22] LABS: Basophils Percent Auto 0.5 % (0.2-1.2); Eosinophils Absolute Auto 0.1 K/mm3 (0-0.3); Eosinophils Percent Auto 1.5 % (0-4.4); Hematocrit 40.6 % (37.0-47.0); Hemoglobin 13.2 g/dL (12.0-15.0); Immature Granulocyte Absolute 0.01 K/mm3 (0.00-0.031); Immature Granulocyte Percent A 0.2 % (0-0.5); Lymphocytes Absolute Auto 1.67 K/mm3 (0.9-3.2); Lymphocytes Percent Auto 25.2 % (18.3-44.2); Mean Corpuscular HGB Conc 32.5 g/dl (32-36); Mean Corpuscular Hemoglobin 30.1 pg (26-34); Mean Corpuscular Volume 92.5 fl (80-100); Mean Platelet Volume 9.9 fl (7.4-10.4); Monocytes Absolute Auto 0.4 K/mm3 (0.1-0.6); Monocytes Percent Auto 5.6 % (2.6-8.5); Neutrophils Absolute Auto 4.5 K/mm3 (1.3-6.7); Platelet Count Result 304 k/mm3 (150-375); Red Blood Count 4.39 M/mm3 (4.2-5.4); Red Cell Distribution Width 14.2 % (11.5-14.5); White Blood Count 6.6 K/mm3 (4.5-10.0)
[2022-03-02 08:31] LABS: Alanine Aminotransferase 15 U/L (6-35); Albumin Level 4.1 g/dL (3.5-5.1); Alkaline Phosphatase 76 U/L (38-126); Anion Gap 12 mmol/L (8-16); Aspartate Amino Transferase 20 U/L (14-36); Bilirubin,Total 0.8 mg/dL (0.2-1.3); Blood Urea Nitrogen 16 mg/dL (7-17); Carbon Dioxide 27 mmol/L (22-30); Chloride 102 mmol/L (98-107); Estimated CRCL calculation 80 ml/min; Estimated Glomerular Filt Rate > 60; Glucose 119 mg/dL (65-110); Lipase 68 U/L (23-300); Potassium 3.6 mmol/L (3.4-5.0); Sodium 141 mmol/L (137-145)
[2022-03-02 08:33] LABS: Prothrombin Time 13.1 Seconds (11.1-14.7)
[2022-03-02 08:43] LABS: Troponin I < 0.012 ng/mL (0.000-0.034)
[2022-03-02] MEDS: ASPIRIN 81 MG CHEWABLE TABLET 324 MG PO (08:45)
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
[2022-03-02 11:30] LABS: Troponin I < 0.012 ng/mL (0.000-0.034)
== END 2022-03-02 12:01 | disposition home or self-care (01) ==
PROVIDERS: Emergency Provider Emergency Medicine; PCP Nurse Practitioner Family
DX: R07.89 Other chest pain (principal); M19.90 Unspecified osteoarthritis, unspecified site; K21.9 Gastro-esophageal reflux disease without esophagitis; E78.5 Hyperlipidemia, unspecified; Z90.710 Acquired absence of both cervix and uterus; R94.31 Abnormal electrocardiogram [ECG] [EKG]
CPT/HCPCS: 36415; 71046; 80053; 83690; 84484; 85025; 85610; 85730; 93005; 99284; A9270

== ENCOUNTER 2022-11-24 05:43 | Emergency (ER) | payer OTHER, SELFPAY ==
[2022-11-24] VITALS (19 sets, daily range): BP systolic 134–166; BP diastolic 56–112; PULSE 60–81; RESP 12–22; TEMP 36.4–36.6; O2SAT 97–100
--- NOTE | 2022-11-24 06:13 | ECG_ITS ---
Measurements Intervals [place] Rate: 71 P: 9 [place]: 123 QRS: -6 QRSD: 113 T: 12 QT: 394 QTc: 428 Interpretive Statements SINUS RHYTHM LOW VOLTAGE- PRECORDIAL LEADS MINIMAL Q WAVES- HIGH LATERAL LEADS BORDERLINE T WAVE ABNORMALITY- ANT/INF LEADS BORDERLINE ECG COMPARED TO ECG 03/02/2022 07:58:07 NO SIGNIFICANT CHANGES Electronically Signed On 11-24-2022 6:57:58 CDT by Jayant Glover D.O.
--- NOTE | 2022-11-24 06:44 | PC.NURSE ---
Pt states my chest feels strange but i think it is just anxiety . Provider made aware, EKG done.
[2022-11-24 06:48] LABS: Basophils Percent Auto 0.6 % (0.2-1.2); Eosinophils Absolute Auto 0.1 K/mm3 (0-0.3); Eosinophils Percent Auto 2.5 % (0-4.4); Hematocrit 40.2 % (37.0-47.0); Hemoglobin 12.7 g/dL (12.0-15.0); Immature Granulocyte Absolute 0.01 K/mm3 (0.00-0.031); Immature Granulocyte Percent A 0.2 % (0-0.5); Lymphocytes Absolute Auto 1.83 K/mm3 (0.9-3.2); Lymphocytes Percent Auto 35.2 % (18.3-44.2); Mean Corpuscular HGB Conc 31.6 g/dl (32-36); Mean Corpuscular Hemoglobin 29.2 pg (26-34); Mean Corpuscular Volume 92.4 fl (80-100); Monocytes Absolute Auto 0.3 K/mm3 (0.1-0.6); Monocytes Percent Auto 6.3 % (2.6-8.5); Neutrophils Absolute Auto 2.9 K/mm3 (1.3-6.7); Neutrophils Percent Auto 55.2 % (45.5-73.1); Platelet Count Result 289 k/mm3 (150-375); Red Blood Count 4.35 M/mm3 (4.2-5.4); Red Cell Distribution Width 14.2 % (11.5-14.5); White Blood Count 5.2 K/mm3 (4.5-10.0)
[2022-11-24 06:53] LABS: Alanine Aminotransferase 20 U/L (6-35); Albumin Level 3.8 g/dL (3.5-5.1); Alkaline Phosphatase 81 U/L (38-126); Anion Gap 6 mmol/L (8-16); Aspartate Amino Transferase 24 U/L (14-36); Bilirubin,Total 0.6 mg/dL (0.2-1.3); Blood Urea Nitrogen 14 mg/dL (7-17); Calcium 8.8 mg/dL (8.4-10.2); Carbon Dioxide 26 mmol/L (22-30); Chloride 107 mmol/L (98-107); Estimated CRCL calculation 102 ml/min; Estimated Glomerular Filt Rate > 60; Glucose 110 mg/dL (65-110); Lipase 108 U/L (23-300); Potassium 3.6 mmol/L (3.4-5.0); Sodium 139 mmol/L (137-145)
[2022-11-24 07:06] LABS: Troponin I < 0.012 ng/mL (0.000-0.034)
[2022-11-24 07:54] LABS: Appearance Urine Clear (Clear); Bilirubin Urine Negative (Negative); Blood Urine Negative (Negative); Color Urine Yellow (Yellow); Glucose Urine UA Negative (Negative); Ketones Urine Negative (Negative); Leukocyte Esterase Ur Negative LEU/UL (Negative); Nitrate Urine Negative (Negative); Protein Urine Negative (Negative); Specific Grav Ur 1.018 (1.001-1.035); Urobilinogen Urine 0.2 mg/dL (<2.0)
[2022-11-24 08:01] LABS: Add Urine Microscopic? NO
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
== END 2022-11-24 09:30 | disposition home or self-care (01) ==
PROVIDERS: Emergency Medicine; Emergency Provider Emergency Medicine; PCP Nurse Practitioner Family
DX: L75.0 Bromhidrosis (principal); N39.0 Urinary tract infection, site not specified; M19.90 Unspecified osteoarthritis, unspecified site; K21.9 Gastro-esophageal reflux disease without esophagitis; E78.5 Hyperlipidemia, unspecified; Z90.710 Acquired absence of both cervix and uterus; R94.31 Abnormal electrocardiogram [ECG] [EKG]
CPT/HCPCS: 36415; 80053; 81003; 83690; 84484; 85025; 93005; 99284

== ENCOUNTER 2023-01-04 07:12 | Outpatient (CLI) | payer OTHER, SELFPAY ==
--- NOTE | ~2023-01-04 | CT_ITS ---
. EXAMINATION: CT sinus wo con DATE: 01/04/2023 07:48 INDICATION: Sinus pressure. Upper jaw pain. Chronic sinusitis. TECHNIQUE: Computed tomography (CT) of the paranasal sinuses was performed without contrast. Iterativ e reconstruction technique was employed. Exam dose: 267.28 mGy-cm total exam DLP. COMPARISON: None FINDINGS: There is leftward deviation of the nasal septum. There is intralamellar cell of the left middle nasal turbinate. There is more prominent intralamellar cell and sheryl bullosa of the right middle nasal turbinate. The nasal turbinates are moderately swollen bilaterally. The ostiomeatal units are patent bilaterally. There are fixation devices along the lower anterior wall of each maxillary sinus. The frontal sinuses are diminutive, especially on the right. Otherwise the paranasal sinuses are norm ally developed and aerated. No mucoperiosteal thickening or soft tissue opacity or fluid level is not ed. The mastoid air cells are normally developed and aerated. Middle and inner ear apparatus are unremark able. IMPRESSION: Leftward deviation of nasal septum Mild intralamellar cell of left middle nasal terminate More prominent intralamellar cell and sheryl bullosa of right middle nasal turbinate Patent paranasal sinuses, ostiomeatal units and mastoid air cells Reviewed, dictated and finalized at [facility]. Reviewed, dictated and finalized at location L. IMPRESSION: Leftward deviation of nasal septum Mild intralamellar cell of left middle nasal terminate More prominent intralamellar cell and sheryl bullosa of right middle nasal turb inate Patent paranasal sinuses, ostiomeatal units and mastoid air cells
== END 2023-01-04 07:13 | disposition home or self-care (01) ==
PROVIDERS: PCP Nurse Practitioner Family; Visit Provider Otolaryngology
DX: J32.9 Chronic sinusitis, unspecified (principal); J34.2 Deviated nasal septum
CPT/HCPCS: 70486

== ENCOUNTER 2023-09-16 09:23 | Outpatient (CLI) | payer MEDICARE, OTHER, SELFPAY ==
--- NOTE | ~2023-09-16 | DEXA_ITS ---
Bone Density Report Name: RENETTA VAUGHN Age: 63 Sex: Female Ethnicity: White Date of : 1960 Indication: postmenopausal; screening for osteoporosis; height loss; hysterectomy; Referring Provider: DALTON REZA Study: Bone densitometry was performed. Exam Date: September 16, 2023 Accession number: [id number] Bone Density: Region BMD T-score Z-score Classification AP Spine(L2, L3, L4) 1.013 -0.6 1.3 Normal Femoral Neck (Left) 0.570 -2.5 -1.0 Osteoporosis Total Hip (Left) 0.772 -1.4 -0.1 Osteopenia World Health Organization criteria for BMD impression classify patients as: Normal (T-score at or above -1.0), Osteopenia (T-score between -1.0 and -2.5), or Osteoporosis (T-score at or below -2.5). 10-year Fracture Risk: FRAX not reported because: Some T-score for Spine Total or Hip Total or Femoral Neck at or below -2.5 Previous Exams: Region Exam Age BMD T-score BMD Change BMD Change Date g/cm2 vs Baseline vs Previous AP Spine (L2-L4) 09/16/2023 63 1.013 -0.6 -0.084 (-7.6%) -0.084 (-7.6%) 01/30/2021 61 1.096 0.2 Total Hip(Left) 09/16/2023 63 0.772 -1.4 -0.056 (-6.8%) -0.056 (-6.8%) 01/30/2021 61 0.828 -0.9 *Denotes significance at 95% confidence level, LSC for AP Spine = 0.022 g/cm2, LSC for Total Hip = 0.027 g/cm2 # Denotes dissimilar scan types or analysis methods Clinical Information Provided by Patient: Has used the following medications: Vitamin D, Calcium Has the following medical conditions: Hysterectomy Patient maximum height was 64 Menopause Age: 37 No regular weight bearing exercise Drinks caffeinated beverages Onset of menses at age 9 Number of children 3 Impression: The patient has osteoporosis, based on the Left Femoral Neck T-score. No significant bone loss was observed. Discussion: INCREASED RISK OF FRACTURE. BONE DENSITY IS UNDESIRABLY LOW AT ONE OR MORE SKELETAL SITES, CONSISTENT WITH POSTMENOPAUSAL OSTEOPOROSIS. This patient's lowest T-score meets the World Health Organization's (WHO) criteria for osteoporosis at one or more sites (T-score -2.5 or below). In untreated patients, the risk of osteoporotic fracture increases approximately two-fold for each 1.0 SD decrease in T-score. Low bone density is not the only risk factor for fracture; also consider factors such as patient's age, frailty or poor health, risk of falling, risk of injury, previous osteoporotic fracture, family history of osteoporosis, cigarette smoking, low body weight, etc. Not everyone with low bone mineral density has osteoporosi
== END 2023-09-16 09:24 | disposition home or self-care (01) ==
LOC: ANHIMG 09:24
PROVIDERS: PCP Family Medicine; Visit Provider Nurse Practitioner Family
DX: Z78.0 Asymptomatic menopausal state (principal); M85.80 Other specified disorders of bone density and structure, unspecified site; Z90.710 Acquired absence of both cervix and uterus; M81.0 Age-related osteoporosis without current pathological fracture; M85.852 Other specified disorders of bone density and structure, left thigh
CPT/HCPCS: 77080

== ENCOUNTER 2023-10-28 16:12 | Outpatient (CLI) | payer MEDICARE, OTHER, SELFPAY ==
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
== END 2023-10-28 16:13 | disposition home or self-care (01) ==
LOC: ANHIMG 16:13
PROVIDERS: PCP Family Medicine; Visit Provider Nurse Practitioner Family
DX: M16.11 Unilateral primary osteoarthritis, right hip (principal)
CPT/HCPCS: 73502

== ENCOUNTER 2023-11-22 12:18 | Emergency (ER) | payer OTHER, MEDICARE, SELFPAY ==
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
[2023-11-22 12:18] VITALS: BP 147/116; PULSE 87; RESP 22; TEMP 36.6; O2SAT 99
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
--- NOTE | 2023-11-22 13:53 | PC.NURSE ---
patient refused morphine IV, I don't like the way it makes me feel . provider aware
[2023-11-22 14:47] VITALS: BP 175/87; PULSE 76; RESP 20; O2SAT 100
== END 2023-11-22 14:48 | disposition home or self-care (01) ==
PROVIDERS: Emergency Provider Emergency Medicine; PCP Family Medicine
DX: S80.02XA Contusion of left knee, initial encounter (principal); M19.90 Unspecified osteoarthritis, unspecified site; F32.A Depression, unspecified; F41.9 Anxiety disorder, unspecified; K21.9 Gastro-esophageal reflux disease without esophagitis; E78.5 Hyperlipidemia, unspecified; V43.62XA Car passenger injured in collision with other type car in traffic accident, initial encounter
CPT/HCPCS: 71046; 73502; 73562; 74176; 99284

== ENCOUNTER 2023-11-26 08:00 | Emergency (ER) | payer OTHER, MEDICARE, SELFPAY ==
--- NOTE | ~2023-11-26 | XR_ITS ---
XR hip RT 2V w AP pelvis 11/26/2023 08:57 Indication: Right hip pain Procedure: AP pelvis and 2 views right hip Comparison: 10/28/2023 Findings: There is moderate osteoarthritis of the right hip. There are 2 lag screws transfixing the r ight acetabulum. There are loose bodies surrounding the right femoral neck. No acute fracture is iden tified. There is moderate osteoarthritis of the left hip. There is lower lumbar spondylosis. There ar e degenerative changes of the pubic symphysis. Impression: 1: No acute fracture. Reviewed, dictated and finalized at location B. Impression: 1: No acute fracture.
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
[2023-11-26 08:04] VITALS: BP 181/90; PULSE 96; RESP 18; TEMP 36.4; O2SAT 97
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
== END 2023-11-26 11:39 | disposition home or self-care (01) ==
PROVIDERS: Emergency Provider Emergency Medicine; PCP Family Medicine
DX: S70.01XA Contusion of right hip, initial encounter (principal); E78.5 Hyperlipidemia, unspecified; E66.01 Morbid (severe) obesity due to excess calories; Z68.42 Body mass index [BMI] 45.0-49.9, adult; K21.9 Gastro-esophageal reflux disease without esophagitis; K58.9 Irritable bowel syndrome, unspecified; M19.90 Unspecified osteoarthritis, unspecified site; M81.0 Age-related osteoporosis without current pathological fracture; Z90.710 Acquired absence of both cervix and uterus; V49.9XXA Car occupant (driver) (passenger) injured in unspecified traffic accident, initial encounter
CPT/HCPCS: 73502; 73700; 99284

== ENCOUNTER 2024-05-22 19:30 | Emergency (ER) | payer MEDICARE, OTHER, SELFPAY ==
--- NOTE | 2024-05-22 19:33 | ECG_ITS ---
Test Date: 2024-05-22 19:39:55 Measurements Intervals Nelson Rate: 83 P: 57 NE: 145 QRS: -11 QRSD: 114 T: 31 QT: 354 QTc: 417 Interpretive Statements SINUS RHYTHM POSSIBLE ANTERIOR MYOCARDIAL INFARCTION , PROBABLY OLD [30 ms Q WAVE IN V3/V4, OR R < 0.2 mV IN V4] No previous ECG available for comparison Electronically Signed On 05-23-2024 14:20:03 TELEHEALTH NURSE EDUCATOR by Rob Hernandez M.D.
[2024-05-22 19:34] VITALS: BP 175/77; PULSE 88; RESP 15; TEMP 36.6; O2SAT 98
[2024-05-22 23:18] VITALS: PULSE 82; O2SAT 98
[2024-05-22 23:20] VITALS: BP 139/66; PULSE 80; RESP 23; TEMP 36.6; O2SAT 99
[2024-05-23 00:11] LABS: Basophils Percent Auto 0.6 % (0.2-1.2); Eosinophils Absolute Auto 0.1 K/mm3 (0-0.3); Eosinophils Percent Auto 1.8 % (0-4.4); Immature Granulocyte Absolute 0.04 K/mm3 (0.00-0.031); Immature Granulocyte Percent A 0.6 % (0-0.5); Lymphocytes Absolute Auto 1.89 K/mm3 (0.9-3.2); Lymphocytes Percent Auto 26.5 % (18.3-44.2); Mean Corpuscular HGB Conc 32.5 g/dl (32-36); Mean Corpuscular Hemoglobin 29.5 pg (26-34); Mean Corpuscular Volume 90.9 fl (80-100); Mean Platelet Volume 9.5 fl (7.4-10.4); Monocytes Absolute Auto 0.5 K/mm3 (0.1-0.6); Monocytes Percent Auto 7.1 % (2.6-8.5); Neutrophils Absolute Auto 4.5 K/mm3 (1.3-6.7); Neutrophils Percent Auto 63.4 % (45.5-73.1); Platelet Count Result 304 k/mm3 (150-375); White Blood Count 7.1 K/mm3 (4.5-10.0)
[2024-05-23 00:20] LABS: INR 0.9; Prothrombin Time 12.7 Seconds (11.1-14.7)
[2024-05-23 00:21] LABS: Partial Thromboplastin Time 29.4 Seconds (22.3-36.8)
[2024-05-23 00:24] LABS: Alanine Aminotransferase 20 U/L (6-35); Albumin Level 3.9 g/dL (3.5-5.1); Alkaline Phosphatase 96 U/L (38-126); Anion Gap 6 mmol/L (4-12); Aspartate Amino Transferase 24 U/L (14-36); Bilirubin,Total 0.8 mg/dL (0.2-1.3); Blood Urea Nitrogen 20 mg/dL (7-17); Calcium 9.4 mg/dL (8.4-10.2); Carbon Dioxide 30 mmol/L (22-30); Chloride 102 mmol/L (98-107); Estimated CRCL calculation 52 ml/min; Estimated Glomerular Filt Rate > 60; Glucose 114 mg/dL (65-110); Magnesium 2.1 mg/dL (1.6-2.3); Potassium 4.4 mmol/L (3.4-5.0); Sodium 138 mmol/L (137-145)
[2024-05-23 00:31] LABS: Influenza A QL RT-PCR Negative (Negative); Influenza B QL RT-PCR Negative (Negative); RSV RNA, RT-PCR Negative (Negative); SARS-CoV-2 RNA PCR Negative (Negative)
[2024-05-23 00:36] LABS: Troponin I < 0.012 ng/mL (0.000-0.034)
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
[2024-05-23 01:23] VITALS: BP 140/64; PULSE 80; RESP 15; TEMP 36.7; O2SAT 98
[2024-05-23 01:45] LABS: Free T4 Free Thyroxine 1.14 ng/dL (0.78-2.19)
[2024-05-23 01:47] VITALS: BP 133/59
== END 2024-05-23 01:47 | disposition home or self-care (01) ==
PROVIDERS: Emergency Provider Physician Assistant; PCP Family Medicine
DX: R00.2 Palpitations (principal); H92.02 Otalgia, left ear; R94.6 Abnormal results of thyroid function studies; M79.622 Pain in left upper arm; Z20.822 Contact with and (suspected) exposure to COVID-19; K21.9 Gastro-esophageal reflux disease without esophagitis; E78.5 Hyperlipidemia, unspecified; M85.80 Other specified disorders of bone density and structure, unspecified site; M81.0 Age-related osteoporosis without current pathological fracture; M19.90 Unspecified osteoarthritis, unspecified site; K58.9 Irritable bowel syndrome, unspecified; F41.1 Generalized anxiety disorder; F32.A Depression, unspecified; Z90.710 Acquired absence of both cervix and uterus; R94.31 Abnormal electrocardiogram [ECG] [EKG]
CPT/HCPCS: 36415; 80053; 83735; 84439; 84443; 84484; 85025; 85610; 85730; 87637; 93005; 99284

== ENCOUNTER 2024-12-10 09:28 | Outpatient (CLI) | payer MEDICARE, OTHER, SELFPAY ==
--- NOTE | ~2024-12-10 | NM_ITS ---
EXAMINATION: NM haley stress w perfusion DATE: 12/10/2024 12:07 INDICATION: Abnormal EKG findings TECHNIQUE: Rest images were obtained following intravenous administration of 9.8 mCi Tc99m tetrofosmi n (Myoview). The patient was infused intravenously with Lexiscan (Regadenoson). Then, 28.9 mCi Tc99m tetrofosmin (Myoview) was administered intravenously, and stress images were obtained. Data was recon structed into short axis and horizontal and vertical long axis SPECT images. Gated SPECT images were also obtained. COMPARISON: None. FINDINGS: Prominent breast attenuation is seen on the rotating source images. There is no definite re versible or fixed perfusion abnormality on the post stress images to suggest ischemia or infarction. There is normal left ventricular chamber size, wall motion and ejection fraction. Left ventricular ejection fraction measures 67%. IMPRESSION: 1. Normal myocardial perfusion at rest and during stress. 2. Left ventricular ejection fraction measuring 67%. Reviewed, dictated and finalized at location A.
--- NOTE | 2024-12-10 09:32 | EST_ITS ---
Patient Info Name: Mame Valero Age: 64 years : 1960 Gender: Female Ht: 62 in Wt: 277 lbs BSA: 2.43 m2 HR: 68 bpm BP: 165 / 75 mmHg Exam Date: 12/10/2024 9:32 AM Patient Status: O Admit Date: 12/10/2024 Exam Type: CA stress haley w NM A regadenoson stress test was performed. Staff Referring Physician: Dora Garcia Attending Provider: Dora Garcia Exercise Technologist: Lacey Arellano Exercise Physician: Jayant Glover DO Summary 1. 1. Negative lexiscan stress test for ischemic ST changes by ECG criteria. 2. 2. Baseline hypertension. 3. 3. Nuclear scan to follow and will be reported separately. Please correlate with it. 4. 4. Patient informed of the above results. Protocol: Lexiscan Stress ECG Details Stage: REST Duration (min): 1 min : 31 sec HR (bpm): 67 SBP (mmHg): --- DBP (mmHg): --- Stage: REST Duration (min): 9 min : 29 sec HR (bpm): 64 SBP (mmHg): 165 DBP (mmHg): 75 Stage: STAGE 1 Duration (min): 0 min : 59 sec HR (bpm): 80 SBP (mmHg): 165 DBP (mmHg): 75 Stage: RECOVERY Duration (min): 1 min : 0 sec HR (bpm): 81 SBP (mmHg): 175 DBP (mmHg): 61 Stage: RECOVERY Duration (min): 2 min : 0 sec HR (bpm): 76 SBP (mmHg): 175 DBP (mmHg): 61 Stage: RECOVERY Duration (min): 3 min : 0 sec HR (bpm): 75 SBP (mmHg): 175 DBP (mmHg): 61 Stage: RECOVERY Duration (min): 3 min : 20 sec HR (bpm): 78 SBP (mmHg): 182 DBP (mmHg): 64 Rest HR: 64 bpm Peak HR: 86 bpm Rest Sys BP: 165 mmHg Peak Sys BP: 182 mmHg Max Pred HR: 154 bpm % Max Pred HR: 56 % Target HR: 131 bpm Max RPP: 15,652 bpm*mmHg Termination Reason: Completed protocol Cardiac Symptoms: Chest discomfort Total Time: 1 min : 0 sec Rest Reddy BP: 75 mmHg Peak Reddy BP: 64 mmHg Total Dose: 0.4 mg Resting ECG Sinus rhythm. Stress ECG No ST changes. Arrhythmias None. Report Signatures
--- OUTSIDE RECORDS SUMMARY | 2024-12-10 09:42 | XMS_ITS | Encounter Summary ---
Author Organization [facility] Address [address] [place] [address] Phone Care Team Providers Care Compensation Adjuster Name Role Phone Dona Russell NP Primary Care Provider + Dash Fuller MD Primary Care Provider [phone] Encounter Details Date Type Department Care Team (Late st Contact Info) Description 12/10/2019 Orders Only [facility] Scanning, Provider Social History Tobacco Use Types Packs/Day Years Used Date Smoking Tobacco: Never Smokeless Tobacco: Never Alcohol Use Standard Drinks/Week Comments Never 0 (1 standard drink = 0.6 oz pur e alcohol) AUDIT-C Answer Date Recorded Frequency of Alcohol Consumption Never 06/04/2019 Average Number of Drinks Not on file 020 Frequency of Binge Drinking Not on file 05/10 Comments No Sex and Gender Information Value Date Recorded Sex Assigned at Not on file 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 Gender Identity Not on file Sexual Orientation Straight 11/07/2023 11 :10 AM CDT documented as of this encounter Plan of Treatment Not on file documented as of this encounter Procedures Procedure Name Priority Date/Time Associated Diagnosis Comments GI - RESULT 12/10/2019 SCAN - LABS 12/10/2019 documented in this encounter Results * SCAN - LABS (12/10/2019) us Provider Scanning Final Result * GI - RESULT (12/10/2019) Anatomical Region Laterality Modality Other us Provider Scanning Edited Result - Final documented in this encounter Visit Diagnoses Not on filedocumented in this encounter Care Teams Compensation Adjuster Relationship Specialty Start Date End Date Dona Russell NP PCP - General Nurse Practitioner 10/05/19 11/06/23 Dash Fuller MD [address] [address] PCP - General Family Medicine 11/07/23 documented as of this encounter
--- OUTSIDE RECORDS SUMMARY | 2024-12-10 09:42 | XMS_ITS | Referral Summary ---
Author Organization [address] Address [address] [place] [id number] Care Team Providers Care Temperer Name Role Phone Dash Fuller MD Primary Care Provider [phone] Encounters Date Type Department Care Team Description 09/18/2024 Telephone [facility] Orthopaedic Surgery [address] [place] [address] Office [facility] [address] [place] [phone] Amanda Lopez ATC 09/10/2024 8:00 AM CDT Office Visit [facility] Orthopaedic Surgery [address] [place] [phone] Natacha Galicia NP BMI 50.0-59.9, adult (HCC) (Primary Dx); Primary osteoarthritis of right hip; Pain in right hip from Last 3 Months Allergies No known active allergies Medications cholecalciferol , vitD3,/vit K2 (VITAMIN D3-VITAMIN K2 ORAL)Indication s:supplement Take 1 tablet by mouth nailing machine feeder before breakfast Active Lactobac no.41/Bifidobac t no.7 (PROBIOTIC-10 ORAL) Take by mouth Active methocarbamoL (ROBAXIN) 750 mg tablet Take 750 mg by mouth 3 (three) times a day 1 Active valACYclovir (VALTREX) 1 gram tablet Take 1 tablet (1,000 mg total) by mouth 3 (three) times a day 1 Active famotidine (PEPCID) 40 mg tablet Take 0.5 tablets (20 mg total) by mouth daily 15 tablet 1 1 Active omeprazole (PriLOSEC) 20 mg capsule Take 1 capsule (20 mg total) by mouth daily Active amoxicillin (AMOXIL) 875 mg tablet Take 1 tablet (875 mg total) by mouth every 12 (twelve) hours 4 Active cetirizine (ZyrTEC) 10 mg tablet Take 1 tablet (10 mg total) by mouth daily Active cyclobenzaprine (FLEXERIL) 10 mg tablet Take 1 tablet (10 mg total) by mouth 2 (two) times a day as needed [address] (NexIUM) 40 mg capsule Active folic acid (FOLVITE) 1 mg tablet Take 1 tablet every day by oral route as directed for 90 days. Active methylPREDNISol one (MEDROL DOSEPACK) 4 mg Dosepack FOLLOW PACKAGE DIRECTIONS 4 Active hydrOXYzine (ATARAX) 50 mg tablet Take 1 tablet twice a day by oral route. Active phentermine 15 mg capsule Take 1 tablet by mouth daily Active oxyBUTYnin XL (DITROPAN-XL) 5 mg 24 hr tablet Take 1 tablet every day by oral route. Active oxyBUTYnin XL (DITROPAN-XL) 10 mg 24 hr tablet Take 1 tablet (10 mg total) by mouth daily Active acetaminophen (TYLENOL) 500 mg tablet Take 1 tablet (500 mg total) by mouth every 6 (six) hours as needed for pain Active Active Problems Patient Care Coordination No te Formatting of this note migh t be different from the original. Verónica Palacio NP 09/22/2022 08:42 AM This is a 62-year-old female patient presents to the clinic today for a hiatal hernia. She was referred to us by Dr. Jose Armando Adame. She has a medical history significant for arthritis, gallstones, and postoperative nausea and vomiting. She has never been a smoker. Per review of patient's chart, she has been suffering from GERD for awhile now and had a recent EGD which revealed a small hiatal hernia. She underwent a barium swallow on 09/24/2022 which reveals: FINDINGS: 12.5 mm Barium Tablet: No significant delay in passage.ESOPHAGEAL MOTILITY: Esophageal dysmotility with loss of primary peristalsis with lower esophageal tertiary contractions causing no significant delay in esophageal emptying or intraesophageal reflux in the upright position. There is variable intraesophageal reflux in the prone position which is cleared with secondary swallows. ESOPHAGEAL MUCOSA: Unremarkable appearance of the mucosa. GASTRO-ESOPHAGEAL JUNCTION: Small hiatal hernia with minimal gastroesophageal reflux only in the prone position. NON-GI TRACT STRUCTURES: No significant finding. OTHER: No other significant finding. IMPRESSION: Esophageal dysmotility with distal tertiary contractions and without significant esophageal narrowing. Small hiatal hernia with minimal gastroesophageal reflux in the prone position. She is here for further surgical evaluation discussion. Verónica Palacio NP 08/06/2024 0915 This is a 64 year old female patient presenting back to the clinic today for a follow up regarding hiatal hernia. She was previously seen in the office on 09/28/2022 at which point in time the recommendation was that the patient be managed medically or seek bariatric surgery for treatment of hiatal hernia. The note also mentioned that if her BMI was at or below 35 a hiatal hernia repair could be considered. Of note, patient has recently been started on phentermine for obesity. Patient requests follow up in clinic for further evaluation and discussion regarding hiatal hernia. She is here for further evaluation and discussion. Problem Noted Date Diagnosed Date Primary osteoarthritis of right hip 09/11/2024 Pain in right hip 09/11/2024 BMI 50.0-59.9, adult 09/11/2024 Deviated nasal septum 01/19/2023 Hypertrophy of nasal turbinates 01/19/2023 Chronic sinusitis 12/23/2022 Dental caries 11/18/2022 Irritable bowel syndrome 11/18/2022 Sense of smell altered 10/27/2022 Overactive bladder 10/15/2022 Hiatal hernia 10/12/2022 Laryngitis due to gastroesophageal reflux 202109/27/2022 Obesity 01/19/2022 09/27/2022 Chronic cough 01/07/2022 09/27/2022 Pain of right hip joint 10/01/2020 Pain in unspecified knee 08/13/2020 Dark stools 02/13/2020 Gastro-esophageal reflux disease with esophagiti s 02/13/2020 Diverticular disease 12/27/2019 Cholelithiasis 10/09/2019 Overview (10/09/2019): Added automatically from request for surgery [id number] Vitamin D deficiency 06/04/2019 Osteoarthritis of knee 06/04/2019 Hyperlipidemia 06/04/2019 Enthesopathy of hip region 06/04/2019 Candidal vulvovaginitis 06/04/2019 Cardiomegaly 10/23/2018 Upper respiratory infection 06/17/2017 Exposure to influenza 06/17/2017 Muscle weakness 01/25/2017 Lumbar spondylosis 01/25/2017 Pain of lumbar spine 08/30/2016 Neck pain 08/30/2016 Immunizations Immunization Administration Dates Next Due Influenza, Quadrivalent, Split, Intramuscular ,02/17/2016 Influenza, Trivalent, IM (MDV) 02/08/2014,2013 Anthony (J&J) SARS-CoV-2 Vaccination 05/20/2021 Social History Tobacco Use Types Packs/Day Years Used Date Smoking Tobacco: Never Smokeless Tobacco: Never Alcohol Use Standard Drinks/Week Comments Never 0 (1 standard drink = 0.6 oz pur e alcohol) AUDIT-C Answer Date Recorded Q1: How often do you have a drink containing alcohol? Never 09/27/2022 Q2: How many drinks containi ng alcohol do you have on a typical day when you are drinking? Patient does not drink Q3: How often do you have si x or more drinks on one occasion? 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 Gender Identity Not on file Sexual Orientation Straight 11/07/2023 11 :10 AM CDT Last Filed Vital Signs Vital Sign Reading Time Taken Comments Blood Pressure 125/80 09/10/2024 8:34 AM CDT Pulse 71 09/10/2024 8:34 AM CDT Temperature 36.4 C (97.5 F) 09/27/2022 2:43 PM CDT Respiratory Rate 23 09/27/2022 2:43 PM CDT Oxygen Saturation 95% 09/27/2022 2:43 PM CDT Inhaled Oxygen Concentration - - Weight 128.5 kg (283 lb 3.2 oz) 09/10/2024 8:34 AM CDT Height 157.5 cm (5' 2) 09/10/2024 8:34 AM CDT Body Mass Index 51.8 09/10/2024 8:34 AM CDT Plan of Treatment Not on file Insurance [facility] [place] [address] MEDICARE [facility] [place] [address] Care Teams Temperer Relationship Specialty Start Date End Date Dash Fuller MD [address] [address] PCP - General Family Medicine 11/07/23
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
--- OUTSIDE RECORDS SUMMARY | 2024-12-10 09:42 | XMS_ITS | Encounter Summary ---
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 Gender Identity Not on file Sexual Orientation Straight 11/07/2023 11 :10 AM CDT documented as of this encounter Plan of Treatment Not on file documented as of this encounter Procedures Procedure Name Priority Date/Time Associated Diagnosis Comments SCAN - LABS 11/02/2019 documented in this encounter Results * SCAN - LABS (11/02/2019) us Provider Scanning Final Result documented in this encounter Visit Diagnoses Not on filedocumented in this encounter Care Teams Turbine Mechanic Relationship Specialty Start Date End Date Dona Russell NP PCP - General Nurse Practitioner 10/05/19 11/06/23 Dash Fuller MD [address] [address] PCP - General Family Medicine 11/07/23 documented as of this encounter
--- OUTSIDE RECORDS SUMMARY | 2024-12-10 09:42 | XMS_ITS | Clinical Summary ---
Author Organization [facility] Address [facility] [place] [address] Care Team Providers Care Fox Farmer Name Role Phone Dona Russell [facility] Primary Care Provider + Allergies No known active allergies Medications diclofenac EC 75 MG tablet Take 1 tablet (75 mg total) by mouth 2 (two) times daily as needed (Pain. Please take with meals). 30 tablet 11/02/2019 Active omeprazole 20 MG capsule Take 1 capsule (20 mg total) by mouth daily. Before meals 30 capsule 11/21/2019 Active Family History Medical History Relation Comments COPD Father Cancer Mother Relation Status Comments Father Mother Social History Tobacco Use Types Packs/Day Years Used Date Smoking Tobacco: Never Smokeless Tobacco: Never Alcohol Use Standard Drinks/Week Comments Never 0 (1 standard drink = 0.6 oz pur e alcohol) AUDIT-C Answer Date Recorded Frequency of Alcohol Consumption Never 11/02/2019 Average Number of Drinks Not on file 020 Frequency of Binge Drinking Not on file 10/08 Comments No Sex and Gender Information Value Date Recorded Sex Assigned at Not on file Legal Sex Female 6:35 PM CDT Gender Identity Not on file Sexual Orientation Not on file Last Filed Vital Signs Vital Sign Reading Time Taken Comments Blood Pressure 129/78 11/21/2019 4:32 PM CDT Pulse 76 11/21/2019 4:32 PM CDT Temperature 36.4 C (97.6 F) 11/21/2019 3:36 PM CDT Respiratory Rate 17 11/21/2019 4:32 PM CDT Oxygen Saturation 97% 11/21/2019 4:32 PM CDT Inhaled Oxygen Concentration - - Weight 116.9 kg (257 lb 11.5 oz) 11/21/2019 3:36 PM CDT Height 162.6 cm (5' 4) 11/21/2019 3:36 PM CDT Body Mass Index 44.24 11/21/2019 3:36 PM CDT Plan of Treatment Health Maintenance Due Date Last Done Comments Colorectal Cancer Screening Colonoscopy (10 Years) 1958 Hepatitis C 01/16/1976 DTaP, Tdap and Td Vaccines ( 1 - Tdap) 1977 Mammogram Screening 1998 Pneumococcal Vaccine: 50+ Ye ars (1 of 1 - PCV) 01/16/2008 Zoster Vaccines (1 of 2) 01/16/2008 Dexa Scan (General) 2023 COVID-19 Vaccine (1 - 2023-2 5 season) 2024 RSV Immunization or 60+ Years (1 - 1-dose 75+ series) 2033 Meningococcal B Vaccine Aged Out No l onger eligible based on patient's age to complete this topic Meningococcal Vaccine Aged Out No juan jose edenilson eligible based on patient's age to complete this topic RSV Immunizations Under 20 Months Aged Out No longer eligible based on patient's age to complete this topic Insurance [employer] Care Teams Fox Farmer Relationship Specialty Start Date End Date Dona Russell, DOLL MAKER-BC [address] [place] [address] PCP - General NURSE PRACTITIONER 11/02/19
--- OUTSIDE RECORDS SUMMARY | 2024-12-10 09:42 | XMS_ITS | Encounter Summary ---
Author Organization [facility] Address [address] [place] [address] Phone Care Team Providers Care Dialysis Biomed Technician Name Role Phone Dona Russell NP Primary Care Provider + Dash Fuller MD Primary Care Provider [phone] [phone] Encounter Details Date Type Department Care Team (Late st Contact Info) Description 12/10/2019 Orders Only [facility] Scanning, Provider Social History Tobacco Use Types Packs/Day Years Used Date Smoking Tobacco: Never Assessed AUDIT-C Answer Date Recorded Frequency of Alcohol Consumption Never 06/04/2019 Average Number of Drinks Not on file 020 Frequency of Binge Drinking Not on file 05/10 Comments No Sex and Gender Information Value Date Recorded Sex Assigned at Not on file Legal Sex Female 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 Gender Identity Not on file Sexual Orientation Straight 11/07/2023 11 :10 AM CDT documented as of this encounter Plan of Treatment Not on file documented as of this encounter Procedures Procedure Name Priority Date/Time Associated Diagnosis Comments GI - RESULT 12/10/2019 documented in this encounter Results * GI - RESULT (12/10/2019) Anatomical Region Laterality Modality Other us Provider Scanning Edited Result - Final documented in this encounter Visit Diagnoses Not on filedocumented in this encounter Care Teams Dialysis Biomed Technician Relationship Specialty Start Date End Date Dona Russell, SCALLOP SHUCKER PCP - General Nurse Practitioner 10/05/19 11/06/23 Dash Fuller MD [address] [address] PCP - General Family Medicine 11/07/23 documented as of this encounter
== END 2024-12-10 09:29 | disposition home or self-care (01) ==
PROVIDERS: PCP Nurse Practitioner Family; Visit Provider Nurse Practitioner Family
DX: R94.31 Abnormal electrocardiogram [ECG] [EKG] (principal); I10 Essential (primary) hypertension
CPT/HCPCS: 78452; 93017; A9502; J2785

== ENCOUNTER 2024-12-26 04:27 | Emergency (ER) | payer MEDICARE, OTHER, SELFPAY ==
--- NOTE | ~2024-12-26 | CT_ITS ---
Non-contrast CT scan of the Abdomen and Pelvis Clinical indication: Epigastric pain Technique: 2.5 mm axial scans were obtained through the abdomen and pelvis without intravenous or oral contrast. Dose reduction technique was used on this scan by utilizing automated exposure control and iterative reconstruction technique. The dose-length product (DLP) was 1819.56 mGy-cm. Findings: Images through the lung bases reveal no abnormalities. There is no evidence of renal or ureteral calculi. The kidneys and the ureters are nondilated. The liver, spleen, pancreas, and adrenals appear normal. Cholecystectomy clips are present. There is no aortic aneurysm. There is no evidence of bowel obstruction. Images through the pelvis were performed. There is no evidence of ascites or lymphadenopathy. Urinary bladder unremarkable. No pelvic mass seen. Severe right hip joint osteoarthritis present with prior acetabular fixation. Impression: No significant abnormality seen. Reviewed, dictated and finalized at [facility]. Impression: No significant abnormality seen.
--- OUTSIDE RECORDS SUMMARY | 2024-12-26 04:29 | XMS_ITS | Encounter Summary ---
Author Organization [facility] [facility] Address [address] [place] [address] Phone Care Team Providers Care Certified Adaptive Physical Educator Name Role Phone Dona Russell NP Primary Care Provider + Dash Fuller MD Primary Care Provider [phone] [phone] Encounter Details Date Type Department Care Team [...] on file Legal Sex Female 4:18 AM CHAPLAINCY Gender Identity Not on file Sexual Orientation [...] on filedocumented in this encounter Care Teams Certified Adaptive Physical Educator Relationship Specialty Start Date End Date Dona Russell NP PCP - General Nurse Practitioner 10/05/19 11/06/23 Dash Fuller MD [address] [address] PCP - General Family Medicine 11/07/23 documented as of this encounter
--- OUTSIDE RECORDS SUMMARY | 2024-12-26 04:29 | XMS_ITS | Clinical Summary ---
Author Organization [address] Address [address] [place] [address] Care Team Providers Care Organization Development Consultant Name Role Phone Dash Fuller MD Primary Care Provider [phone] [phone] Allergies No known active allergies Medications cholecalciferol , vitD3,/vit K2 (VITAMIN D3-VITAMIN K2 ORAL)Indication s:supplement Take 1 tablet by mouth teacher early childhood development before breakfast Active Lactobac no.41/Bifidobac t no.7 [...] (10/09/2019): Added automatically from request for surgery [id number] Vitamin D deficiency 06/04/2019 Osteoarthritis of knee [...] on file Legal Sex Female 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
--- OUTSIDE RECORDS SUMMARY | 2024-12-26 04:29 | XMS_ITS | Encounter Summary ---
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
--- OUTSIDE RECORDS SUMMARY | 2024-12-26 04:29 | XMS_ITS | Encounter Summary ---
Author Organization [facility] [employer] [facility] Address [address] [place] [address] Phone Care Team Providers Care Cad Programmer Name Role Phone Dona Russell NP Primary Care Provider + Dash Fuller MD Primary Care Provider [phone] [phone] Encounter Details Date Type Department Care Team [...] on file Legal Sex Female 4:18 AM RECRUITING AND SELECTION CONSULTANT Gender Identity Not on file Sexual Orientation [...] on filedocumented in this encounter Care Teams Cad Programmer Relationship Specialty Start Date End Date Dona Russell NP PCP - General Nurse Practitioner 10/05/19 11/06/23 Dash Fuller MD [address] [address] PCP - General Family Medicine 11/07/23 documented as of this encounter
--- OUTSIDE RECORDS SUMMARY | 2024-12-26 04:29 | XMS_ITS | Clinical Summary ---
Author Organization [facility] Address [facility] [place] [address] Care Team Providers Care Field Service Analyst Name Role Phone Dona Russell [facility] Primary Care Provider + Allergies No known [...] patient's age to complete this topic Insurance [employer] Care Teams Field Service Analyst Relationship Specialty Start Date End Date Dona Russell, EGG GATHERER-BC [address] [place] [address] PCP - General NURSE PRACTITIONER 11/02/19
[2024-12-26 04:35] VITALS: BP 177/81; PULSE 80; RESP 18; TEMP 36.6; O2SAT 97
--- NOTE | 2024-12-26 04:55 | ECG_ITS ---
Test Date: 2024-12-26 05:00:17 Measurements Intervals Speed Rate: 77 P: 44 CA: 158 QRS: -8 QRSD: 113 T: 25 QT: 372 QTc: 421 Interpretive Statements SINUS RHYTHM LOW QRS VOLTAGE IN PRECORDIAL LEADS MINIMAL Q WAVES- HIGH LATERAL LEADS POSSIBLE ANTERIOR MYOCARDIAL INFARCTION , PROBABLY OLD ABNORMAL ECG Compared to ECG 05/22/2024 19:39:55 NO SIGNIFICANT CHANGE Electronically Signed On 12-26-2024 06:19:21 CDT by Jayant Glover D.O.
[2024-12-26] MEDS: ONDANSETRON INJ 4 MG/2 ML VIAL IV PUSH (05:29)
[2024-12-26] MEDS: PANTOPRAZOLE SODIUM IV 40 MG VIAL IV PUSH (05:29)
[2024-12-26] MEDS: HYDROmorphone HCL INJ (*CRX) 1 MG/ML SYR 0.5 MG IV PUSH (05:30)
[2024-12-26 05:49] LABS: Hematocrit 39.7 % (37.0-47.0); Hemoglobin 12.8 g/dL (12.0-15.0); Immature Granulocyte Percent A 0.3 % (0-0.5); Lymphocytes Absolute Auto 1.78 K/mm3 (0.9-3.2); Mean Corpuscular HGB Conc 32.2 g/dl (32-36); Mean Corpuscular Hemoglobin 29.0 pg (26-34); Mean Corpuscular Volume 89.8 fl (80-100); Nucleated Red Blood Cells Absolute Auto 0.000 K/mm3 (0.0-0.012); Nucleated Red Blood Cells Perc 0.0 % (0.0-0.2); Platelet Count Result 311 k/mm3 (150-375); Red Blood Count 4.42 M/mm3 (4.2-5.4); White Blood Count 6.4 K/mm3 (4.5-10.0)
[2024-12-26] MEDS: METOCLOPRAMIDE HCL INJ 10 MG/2 ML VIAL IV PUSH (06:02)
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
[2024-12-26 06:39] LABS: Alanine Aminotransferase 15 U/L (6-35); Albumin Level 4.0 g/dL (3.5-5.1); Alkaline Phosphatase 104 U/L (38-126); Anion Gap 9 mmol/L (4-12); Aspartate Amino Transferase 37 U/L (14-36); Bilirubin,Total 0.9 mg/dL (0.2-1.3); Blood Urea Nitrogen 18 mg/dL (7-17); Calcium 9.6 mg/dL (8.4-10.2); Carbon Dioxide 25 mmol/L (22-30); Chloride 104 mmol/L (98-107); Estimated CRCL calculation 82 ml/min; Estimated Glomerular Filt Rate > 60; Glucose 133 mg/dL (65-110); Lipase 66 U/L (23-300); Potassium 3.8 mmol/L (3.4-5.0); Sodium 138 mmol/L (137-145); Total Protein 7.0 g/dL (6.3-8.2)
[2024-12-26 06:50] VITALS: BP 108/74; PULSE 81; RESP 18; TEMP 36.6; O2SAT 99
[2024-12-26 07:44] LABS: INR 1.0; Prothrombin Time 13.0 Seconds (11.1-14.7)
[2024-12-26 07:45] LABS: Partial Thromboplastin Time 31.4 Seconds (22.3-36.8)
== END 2024-12-26 06:52 | disposition home or self-care (01) ==
PROVIDERS: Emergency Provider Emergency Medicine; PCP Nurse Practitioner Family
DX: R11.2 Nausea with vomiting, unspecified (principal); E78.5 Hyperlipidemia, unspecified; E66.01 Morbid (severe) obesity due to excess calories; Z68.43 Body mass index [BMI] 50.0-59.9, adult; K58.9 Irritable bowel syndrome, unspecified; K21.9 Gastro-esophageal reflux disease without esophagitis; M85.80 Other specified disorders of bone density and structure, unspecified site; M81.0 Age-related osteoporosis without current pathological fracture; M19.90 Unspecified osteoarthritis, unspecified site; Z90.710 Acquired absence of both cervix and uterus; Z79.899 Other long term (current) drug therapy; R94.31 Abnormal electrocardiogram [ECG] [EKG]
CPT/HCPCS: 36415; 74176; 80053; 83690; 85025; 85610; 85730; 93005; 96374; 96375; 99284; J1171; J2405; J2470; J2765

== ENCOUNTER 2025-01-31 08:01 | Day surgery (SDC) | payer MEDICARE, OTHER, SELFPAY ==
[2025-01-31] VITALS (17 sets, daily range): BP systolic 108–183; BP diastolic 47–89; PULSE 60–76; RESP 10–20; TEMP 36.3–36.8; O2SAT 93–100
--- NOTE | ~2025-01-31 | CT_ITS ---
CT ABDOMEN AND PELVIS WITHOUT CONTRAST Clinical History: Urinary pain Comparison: CT abdomen and pelvis 12/26/2024 Technique: Unenhanced axial images lung bases to symphysis pubis Coronal, sagittal reformats CT images acquired with automatic exposure control for dose reduction DLP: 1670 mGy-cm Findings: Without intravenous contrast, sensitivity for detecting visceral parenchymal abnormalities decreased. Lung bases: Clear. Visualized heart and pericardium: Coronary artery calcifications. Liver: Enlarged. Steatosis. Gallbladder: Removed. Spleen: Unremarkable. Pancreas: Unremarkable. Adrenal glands: Unremarkable. Kidneys: Right kidney- No hydronephrosis. 1 mm stone. Pelviectasis, with 1 mm stone layering within major calyx. Left kidney- No hydronephrosis. No renal stones. Distal esophagus/stomach: Unremarkable. Small bowel loops: Normal caliber and wall thickness. Small duodenal lipoma. Colon: Normal caliber and wall thickness. Appendix with surrounding inflammatory change. Nodes: No enlarged nodes. Peritoneum: No ascites. No free intraperitoneal air. Urinary bladder: Unremarkable. Uterus: Removed. Adnexa: No masses. Bones: No acute bony abnormality. Soft tissues: Unremarkable. Unopacified abdominal aorta: No aneurysmal dilatation. Atherosclerotic disease. IMPRESSION: 1. Acute appendicitis. No complicating features. 2. Tiny stone right kidney. Pelviectasis but no obstructing stone noted. Reviewed, dictated and finalized at location R.
--- OUTSIDE RECORDS SUMMARY | 2025-01-31 08:08 | XMS_ITS | Encounter Summary ---
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
--- OUTSIDE RECORDS SUMMARY | 2025-01-31 08:08 | XMS_ITS | Encounter Summary ---
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
--- OUTSIDE RECORDS SUMMARY | 2025-01-31 08:08 | XMS_ITS | Clinical Summary ---
Author Organization [facility] Address [facility] [place] [address] Care Team Providers Care Scrap Collector Name Role Phone Dona Russell [facility] Primary Care Provider + Allergies No [...] COVID-19 Vaccine (1 - 2023-2 5 season) 2025 RSV Immunization or 60+ Years (1 - [...] patient's age to complete this topic Insurance [employer] Care Teams Scrap Collector Relationship Specialty Start Date End Date Dona Russell, TOOL TENDER-BC [address] [place] [address] PCP - General NURSE PRACTITIONER 11/02/19
--- OUTSIDE RECORDS SUMMARY | 2025-01-31 08:08 | XMS_ITS | Encounter Summary ---
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
[2025-01-31 08:25] LABS: Hematocrit 40.9 % (37.0-47.0); Hemoglobin 12.9 g/dL (12.0-15.0); Immature Granulocyte Percent A 0.3 % (0-0.5); Lymphocytes Absolute Auto 1.88 K/mm3 (0.9-3.2); Mean Corpuscular HGB Conc 31.5 g/dl (32-36); Mean Corpuscular Hemoglobin 28.7 pg (26-34); Mean Corpuscular Volume 91.1 fl (80-100); Nucleated Red Blood Cells Absolute Auto 0.000 K/mm3 (0.0-0.012); Nucleated Red Blood Cells Perc 0.0 % (0.0-0.2); Platelet Count Result 321 k/mm3 (150-375); Red Blood Count 4.49 M/mm3 (4.2-5.4); White Blood Count 6.5 K/mm3 (4.5-10.0)
[2025-01-31 08:34] LABS: Add Urine Microscopic? YES; Appearance Urine Cloudy (Clear); Glucose Urine UA Negative (Negative); Leukocyte Esterase Ur Negative LEU/UL (Negative); Nitrate Urine Negative (Negative); Specific Grav Ur 1.018 (1.001-1.035)
--- NOTE | 2025-01-31 08:43 | PC.NURSE ---
Sitting in chair for comfort. Reports pain to right back. ERP aware.
[2025-01-31 08:47] LABS: Alanine Aminotransferase 18 U/L (6-35); Albumin Level 3.9 g/dL (3.5-5.1); Alkaline Phosphatase 94 U/L (38-126); Anion Gap 7 mmol/L (4-12); Aspartate Amino Transferase 27 U/L (14-36); Bilirubin,Total 0.9 mg/dL (0.2-1.3); Blood Urea Nitrogen 16 mg/dL (7-17); Calcium 9.2 mg/dL (8.4-10.2); Carbon Dioxide 26 mmol/L (22-30); Chloride 105 mmol/L (98-107); Estimated CRCL calculation 82 ml/min; Estimated Glomerular Filt Rate > 60; Glucose 113 mg/dL (65-110); Potassium 3.8 mmol/L (3.4-5.0); Sodium 138 mmol/L (137-145); Total Protein 7.1 g/dL (6.3-8.2)
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
[2025-01-31] MEDS: ONDANSETRON INJ 4 MG/2 ML VIAL IV PUSH (09:56)
[2025-01-31] MEDS: LACTATED RINGERS 1,000 ML 250 ML IV CONT (09:56)
[2025-01-31] MEDS: HYDROmorphone HCL INJ (*CRX) 1 MG/ML SYR 0.5 MG IV PUSH (09:57)
[2025-01-31] MEDS: PIPERACILLIN/TAZOBACTAM SOD 3.375 GM in SODIUM CHLORIDE 0.9% IV 50 ML 100 ML IVPB (09:59)
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
--- NOTE | 2025-01-31 10:50 | S_PTH ---
PATIENT: Mame Valero LOC: [facility] U#:[id number] AGE/SX: 65/F ROOM: RE01/31/[address]: Jcarlos Mireles MD : 1960 BED: DIS: 01/31/2025 SPEC #: [id number] RECD: 02/01/25 08:56 STATUS: [place] REQ #: [id number] SOFI: 01/31/25 10:[address]: Jcarlos Mireles DEPT: [facility] Surgical RECD BY: Dayana Orozco ENTERED: 02/01/25 08:56 SP TYPE: Surgical OTHR DR: Dora Garcia APRN Tissues: A - Appendix Procedures: Hematoxylin and Eosin Stain Gross and Microscopic Level 3
--- OUTSIDE RECORDS SUMMARY | 2025-01-31 10:54 | XMS_ITS | Clinical Summary ---
Author Organization [facility] Address [address] [place] [id number] Care Team Providers Care Specialized Language Instructor Name Role Phone Dash Fuller MD Primary Care Provider [phone] [phone] Allergies Active Allergy Reactions Criticality Noted Date Comments Iohexol Itching Low 11/20/2024 Medications cholecalciferol , vitD3,/vit K2 (VITAMIN D3-VITAMIN K2 ORAL)Indication s:supplement Take 1 tablet by mouth inventory checker before breakfast Active Lactobac no.41/Bifidobac t no.7 [...] (10/09/2019): Added automatically from request for surgery [id number] Vitamin D deficiency 06/04/2019 Osteoarthritis of knee 06/04/2019 Hyperlipidemia 06/04/2019 Enthesopathy of hip region 06/04/2019 Candidal vulvovaginitis 06/04/2019 Cardiomegaly 10/23/2018 Upper respiratory infection 06/17/2017 Exposure to influenza 06/17/2017 Muscle weakness 01/25/2017 Lumbar spondylosis 01/25/2017 Pain of lumbar spine 08/30/2016 Neck pain 08/30/2016 Encounters Date Type Department Care Team Description 01/16/2025 Telephone [facility] Radiology [address] [place] [address] Liz Beal, B.AAsad 01/03/2025 11:15 AM CDT Office Visit [facility] Medicine Orthopaedic Surgery [address] [place] [address] Medical Office Building [address] [place] [address] Anupama Barber PA Primary osteoarthritis of knees, bilateral (Primary Dx); Primary osteoarthritis of right hip 01/03/2025 11:00 AM CDT - 01/03/2025 11:59 PM CDT Hospital Encounter [id number] [address] [place] [address] [address] [place] [id number] Pain in both knees, unspecified chronicity Discharge [...] on file 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 Anpuama SOLOR[facility] IMG XR PROCEDURES Emmy l Result [...] oliver Result from Last 3 Months Insurance Svbtle [facility]IC[facility] [address] MEDICARE [facility] [place] [address] Care Teams Specialized Language Instructor Relationship Specialty Start Date End Date Dash Fuller MD [address] [address] PCP - General Family Medicine 11/07/23
--- OUTSIDE RECORDS SUMMARY | 2025-01-31 10:54 | XMS_ITS | Encounter Summary ---
Author Organization 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
--- OUTSIDE RECORDS SUMMARY | 2025-01-31 10:54 | XMS_ITS | Encounter Summary ---
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
--- OUTSIDE RECORDS SUMMARY | 2025-01-31 10:54 | XMS_ITS | Encounter Summary ---
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
--- OUTSIDE RECORDS SUMMARY | 2025-01-31 10:54 | XMS_ITS | Clinical Summary ---
Author Organization [facility] Address [facility] [place] [address] Care Team Providers Care Cdl Program Coordinator Name Role Phone Dona Russell [facility] Primary Care Provider + Allergies No [...] patient's age to complete this topic Insurance [facility] Care Teams Cdl Program Coordinator Relationship Specialty Start Date End Date Dona Russell, JOB TRAINING SPECIALIST-BC [address] [place] [address] PCP - General NURSE PRACTITIONER 11/02/19
[2025-01-31] MEDS: LACTATED RINGERS 1,000 ML 125 ML IV CONT (11:00)
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
--- NOTE | 2025-01-31 13:24 | WPDHPUPDATE1 ---
History and Physical Update Update Date/Time: 01/31/25 13:24 History and Physical has been reviewed, including an updated exam of the patient. There are NO changes in the patient's condition. Risks, benefits, and alternatives have been discussed and questions answered. Patient agrees to proceed with procedure.
--- NOTE | 2025-01-31 13:53 | W.PM.PROC2 ---
Procedure Note - Detailed Date of Procedure 01/31/25 Pre-op Diagnosis acute appendicitis Post-op Diagnosis Same Procedure Performed laparoscopic appendectomy Surgeon Jcarlos Mireles MD Private Client Advisor Arnel WHITNEY Anesthesia General and Local Indications patient was awakened this morning with severe right lower back pain. This worsened and she came to the emergency room. Workup there included a CT scan which showed acute appendicitis. Findings Acute non perforated appendicitis Description of Procedure patient was taken to surgery and induced into general anesthesia. The abdomen is prepped and draped. Initial trocar was a 5 mm applied Medical optical trocar placed in the left subcostal position. Once positioned, we insufflated the abdomen. Patient was placed in Trendelenburg with the right-side elevated. We then placed 3 additional trocars-1 to the right of midline in the upper abdomen, another in the right mid abdomen and a 3rd in the right lower quadrant. Right lower quadrant trocar was an 11 mm trocar. The appendix was difficult to find. We followed the ascending colon to an inflammatory mass at its end. With some blunt dissection I was able to see the start of the appendix. The rest of the appendix seemed to run into this inflammatory mass. I used some cautery and divided mesoappendiceal fat. I was then able to free some additional adhesions. Eventually, I continued dissection in the mesoappendix. The appendiceal artery was thoroughly cauterized and divided. Continued dissection was carried out and the base of the appendix was skeletonized. A Vicryl endoloop was used to ligate the appendix at its base. The appendix was then amputated just above the ligature. The mucosa of the appendiceal stump was cauterized. The appendix was placed in an Endo-Catch bag. It was retrieved through the 11 mm left lower quadrant trocar site. I replaced the 11 mm trocar and then we reviewed the areas of dissection and the appendiceal stump. Some irrigation and suctioning were used. All looked good. I then used the Choco cone and an 0 Vicryl suture to close the fascia at the 11 mm trocar site. We then evacuated CO2 and removed the trocars. Skin wounds were closed with subcuticular 4-0 Monocryl skin suture. Wounds were dressed with Exofin surgical adhesive. Patient was awakened and taken to recovery in good condition. Sponge and needle counts were correct x2. Estimated Blood Loss -10 Drains No Packing No Pathology Yes ( Appendix) Complications None Condition Stable Disposition PACU [facility] Billing Surgery - Charge Forward: Surgery Billing ( laparoscopic appendectomy)
[2025-01-31] MEDS: BUPIVACAINE/EPINEPHRINE 0.5% 50 ML VIAL 30 ML INFILTRATE (15:13)
[2025-01-31] MEDS: LACTATED RINGERS 1,000 ML 30 ML IV CONT ×2 (15:25)
[2025-01-31] MEDS: fentaNYL CITRATE INJ (*CRX) 100 MCG/2 ML VIAL 25 MCG IV PUSH ×4 (15:45→16:06)
--- NOTE | 2025-01-31 15:45 | P.DS_ITS ---
DS: Admitting Diagnosis Discharge Date 01/31/2025 Admitting Diagnosis Acute appendicitis DS: Discharge Diagnosis Discharge Diagnosis (1) Appendicitis: Qualifiers: Acute appendicitis type: with localized peritonitis Appendicitis gangrene presence: without gangrene Appendicitis perforation presence: without perforation Appendicitis abscess presence: without abscess Appendicitis type: acute appendicitis Qualified Code(s): K35.30 - Acute appendicitis with localized peritonitis, without perforation or gangrene Code(s): K37 - Unspecified appendicitis Status: Acute Assessment and Plan: Laparoscopic appendectomy performed per Dr. Mireles 01/31/2025 DS: Summary Hospital Course Hospital Course: Patient was actually an outpatient. She came from the emergency room to the [facility]. She was taken to surgery and had laparoscopic appendectomy. She was able to be discharged within the outpatient surgery setting. Status at Discharge Functional status at discharge: independent ambulation Overall status at discharge: patient is progressing back to baseline Time Spent with Patient Time attestation: Total time spent providing and/or coordinating discharge services: Time spent: Less than 30 minutes DS: Data Data Completed and Pending Pending studies at discharge: Pending at discharge 01/31/25 10:50 Surgical [PTH] Routine Labs on day of discharge: Labs from last 24 hours 01/31/25 08:19 WBC 6.5 RBC 4.49 Hgb 12.9 Hct 40.9 MCV 91.1 MCH 28.7 MCHC 31.5 L RDW 14.2 Plt Count 321 MPV 9.6 Immature Gran % (Auto) 0.3 Neut % (Auto) 61.1 Lymph % (Auto) 29.1 [place] % (Auto) 6.4 Eos % (Auto) 2.5 Baso % (Auto) 0.6 Lymph # (Auto) 1.88 [place] # (Auto) 0.4 Eos # (Auto) 0.2 Baso # (Auto) 0.0 Abs Immat Gran (auto) 0.02 Absolute Neuts (auto) 3.9 Absolute Nucleated RBC 0.000 Nucleated RBC % 0.0 Sodium 138 Potassium 3.8 Chloride 105 Carbon Dioxide 26 Anion Gap 7 BUN 16 Creatinine 0.72 Estim Creat Clear Calc 82 Estimated GFR > 60 Glucose 113 H Calcium 9.2 Total Bilirubin 0.9 AST 27 ALT 18 Alkaline Phosphatase 94 Total Protein 7.1 Albumin 3.9 Urine Color Yellow Urine Appearance Cloudy H Urine pH 5.0 Ur Specific [place] 1.018 Urine Protein Negative Urine Glucose (UA) Negative Urine Ketones Negative Ur Blood (Man) 3+ H Urine Nitrate Negative Urine Bilirubin Negative Urine Urobilinogen 0.2 Leukocyte Esterase Rfl Negative Urine RBC >100 H Urine WBC 0-5 Ur Squamous Epith Cells Few Urine Bacteria None seen Urine Casts 3-5 Discharge Plan Discharge Patient Disposition: Home Discharge Instructions: 1. May shower the day after surgery over incisions. 2. Call office for: -Wound increasingly painful or bleeding -Vomiting -Fever of greater than 101 degrees 3. Expect some blood on dressing and old blood on skin. 4. If no bowel movement for three days, take 1 oz. (30 ml) Milk of Magnesia, if no results, take Fleets enema. 5. No heavy lifting > 15-20 pounds for 2 weeks. 6. No driving for 3 days or while taking narcotic pain medications. 7. Up walking 10-30 minutes three times per day. 8. Resume previous home medications. 9. Follow-up 10-14 days in office for wound check or as previously scheduled. 10. Oral pain medications prescription to be sent home with patient. 11. NUTRITION: Start out by drinking fluids and increase your diet as tolerated. If you experience nausea, try dry toast, crackers, and 7-UP. If nausea or vomiting persists, contact your surgeon?s office. Patient Language: Italian Stand Alone Forms: General Discharge Instructions Follow-up/Referrals: Dora Garcia NP [Primary Care Provider, Family Practice] Jessica Frank PA-C [Physician Real Estate Appraiser, General Surgery] - 2 Weeks Referral Note: Call Dr. Vasquez office to see Jessica in 2 weeks. Discharge Medications: New oxycodone-acetaminophen [Percocet] 5-325 mg tablet 1 - 2 tablet PO Q6H PRN (Reason: pain) Qty: 15 0RF ibuprofen 600 mg tablet 600 mg PO Q6H PRN (Reason: pain) Qty: 14 0RF Continued oxybutynin chloride 10 mg tablet extended release 24hr 10 mg PO DAILY Qty: 30 11RF celecoxib [Celebrex] 100 mg capsule 100 mg PO BID PRN (Reason: pain) Qty: 60 11RF omeprazole 40 mg capsule,delayed release(DR/EC) 40 mg PO DAILY PRN (Reason: stomach irritation or reflux) Qty: 30 11RF B Complex Plus Vitamin C [id number] mg capsule 1 cap PO DAILY Rx Instructions: give with food (meal/snack) cholecalciferol (vitamin D3) 25 mcg (1,000 unit) capsule 25 mcg PO DAILY ondansetron 4 mg tablet,disintegrating 4 mg PO Q8H PRN (Reason: nausea and vomiting) Qty: 14 0RF alendronate [Fosamax] 70 mg tablet 70 mg PO WEEKLY Qty: 12 3RF
== END 2025-01-31 17:45 | disposition home or self-care (01) ==
LOC: ANHED 09:47 → ANHSURGERY 09:56
PROVIDERS: Emergency Provider Emergency Medicine; PCP Nurse Practitioner Family; Visit Provider Surgery
PROC: 0DTJ4ZZ Resection of Appendix, Percutaneous Endoscopic Approach (ICD-10-PCS; CPT 44970; principal; 2025-01-31 14:00)
DX: K35.30 Acute appendicitis with localized peritonitis, without perforation or gangrene (principal); G89.18 Other acute postprocedural pain; E78.5 Hyperlipidemia, unspecified; K58.9 Irritable bowel syndrome, unspecified; M81.0 Age-related osteoporosis without current pathological fracture; K21.9 Gastro-esophageal reflux disease without esophagitis; R35.0 Frequency of micturition; R03.0 Elevated blood-pressure reading, without diagnosis of hypertension; F32.A Depression, unspecified; F41.9 Anxiety disorder, unspecified; F41.0 Panic disorder [episodic paroxysmal anxiety]; M85.88 Other specified disorders of bone density and structure, other site; G89.29 Other chronic pain; M25.551 Pain in right hip; M19.90 Unspecified osteoarthritis, unspecified site; E66.01 Morbid (severe) obesity due to excess calories; Z68.42 Body mass index [BMI] 45.0-49.9, adult; Z79.83 Long term (current) use of bisphosphonates; Z79.1 Long term (current) use of non-steroidal anti-inflammatories (NSAID); Z98.890 Other specified postprocedural states; Z80.1 Family history of malignant neoplasm of trachea, bronchus and lung; Z80.8 Family history of malignant neoplasm of other organs or systems
CPT/HCPCS: 44970; 36415; 74176; 80053; 81001; 85025; 88304; 96365; 96375; 99285; J0690; J1100; J1171; J1200; J2003; J2250; J2405; J2543; J2704; J3010; J7120